=== PATIENT | female | born 1940 | race Caucasian/White ===

== ENCOUNTER 2016-12-22 16:00 | Inpatient (IN) | payer MEDICARE, OTHER ==
[2016-12-29] MEDS: Lactated Ringers 1,000 ML IV SCH ×2 (06:25→10:06)
[2016-12-29] MEDS ORDERED: ceFAZolin 1 GM Vial ONE (06:46)
[2016-12-29] MEDS ORDERED: Ondansetron 4 MG/2 ML SDV ONE (06:46)
[2016-12-29] MEDS ORDERED: Sodium Chloride 0.9% 10 ML Syringe ONE (06:46)
[2016-12-29] MEDS ORDERED: Morphine PF 10 MG/10 ML SDV ONE (06:46)
[2016-12-29] MEDS ORDERED: Propofol 200 MG/20 ML SDV ONE ×2 (06:49→07:59)
--- NOTE | 2016-12-29 06:51 | PCM.PREANE ---
Preanesthetic Assessment - Anesthesia/Transfusion/Family Hx Anesthesia History: Prior Anesthesia Without Reaction Family History of Anesthesia Reaction: No Transfusion History: Prior Transfusion Without Reaction - Review of Systems General: No Symptoms Pulmonary: No Symptoms Cardiovascular: No Symptoms Gastrointestinal: No Symptoms Neurological: No Symptoms Other: Reports: Easy Bruising - Physical Assessment NPO Status Date: 12/28/16 NPO Status Time: 20:15 O2 Sat by Pulse Oximetry: 96 Respiratory Rate: 16 Vital Signs: Last Vital Signs Temp 97.7 F 12/29/16 06:10 Pulse 96 12/29/16 06:10 Resp 16 12/29/16 06:10 BP 153/84 H 12/29/16 06:10 Pulse Ox 96 12/29/16 06:10 Height: 5 ft 3 in Weight: 59.421 kg ASA Class: 3 Mental Status: Alert & Oriented x3 Dentition: Reports: Dentures (top ), Partial (bottom) Thyro-Mental Finger Breadths: 2 Mouth Opening Finger Breadths: 3 ROM/Head Extension: Full Lungs: Clear to Auscultation, Normal Respiratory Effort Cardiovascular: Regular Rate, Regular Rhythm, No Murmurs - Lab Values: Laboratory Last Values MRSA (PCR) Negative 12/17/16 12:41 12/15/16 labs HGB 13.8 Plt 145 BUN 17 Cr 0.60 Na 134 K 3.9 Cl 96 COs 28 - Imaging/EKG Impressions: 12-15-16 EKG SR rate 74 inferior infarct-old - Allergies Allergies/Adverse Reactions: Allergies Allergy/AdvReac Type Severity Reaction Status Date / Time JANELL Inhibitors Allergy Cannot Verified 12/29/16 06:44 Remember amoxicillin Allergy Cannot Verified 12/29/16 06:44 Remember Sulfa (Sulfonamide Allergy Cannot Verified 12/29/16 06:44 Antibiotics) Remember - Blood Blood Available: No - Acknowledgements Anesthesia Type Planned: Spinal Pt an Appropriate Candidate for the Planned Anesthesia: Yes Alternatives and Risks of Anesthesia Discussed w Pt/Guardian: Yes Pt/Guardian Understands and Agrees with Anesthesia Plan: Yes PreAnesthesia Questionnaire HEENT History: Reports: Impaired Vision, Macular Degeneration, Other (See Below) Other HEENT History: Broken tooth Cardiovascular History: Reports: Hypertension, Other (See Below) Other Cardiovascular History: Dependent edema Respiratory History: Reports: None Gastrointestinal History: Reports: Colon Polyp Genitourinary History: Reports: UTI, Recurrent [employer]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: Musculoskeletal History: Reports: Osteoarthritis Other Musculoskeletal History: Hand pain, ankle sprain, bilateral carpal tunnel Neurological History: Reports: Other (See Below) Other Neuro History: Mild kyphosis Psychiatric History: Reports: None Endocrine/Metabolic History: Reports: Osteopenia, Other (See Below) Other Endocrine/Metabolic History: Lupus Hematologic History: Reports: Other (See Below) Other Hematologic History: Thrombocytopenia, pancytopenia Immunologic History: Reports: Other (See Below) Other Immunologic History: Lupus Oncologic (Cancer) History: Reports: None Dermatologic History: Reports: Other (See Below) Other Dermatologic History: Dry skin - Infectious Disease History Infectious Disease History: Reports: Shingles - Past Surgical History HEENT Surgical History: Reports: None Cardiovascular Surgical History: Reports: None Respiratory Surgical History: Reports: None GI Surgical History: Reports: Colonoscopy Female Surgical History: Reports: Dilitation & Evacuation Endocrine Surgical History: Reports: None Neurological Surgical History: Reports: None Musculoskeletal Surgical History: Reports: Knee Replacement Other Musculoskeletal Surgeries/Procedures:: Bilateral carpaul tunnel repair, Right total knee replacement Oncologic Surgical History: Reports: None Dermatological Surgical History: Reports: None - SUBSTANCE USE Smoking Status *Q: Never Smoker Tobacco Use Within Last Twelve Months: No Second Hand Smoke Exposure: No Days Per Week of Alcohol Use: 0 Recreational Drug Use History: No - HOME MEDS Home Medications: Home Meds Gabapentin [Neurontin] 300 mg PO TID 03/27/16 [History] Hydroxychloroquine [Plaquenil] 200 mg PO BID 03/27/16 [History] Losartan/Hydrochlorothiazide [Losartan-HCTZ 50-12.5 MG] 1 tab PO DAILY 03/27/16 [History] azaTHIOprine [Azathioprine] 50 mg PO BID 03/27/16 [History] Aspirin [Halfprin] 81 mg PO DAILY 12/26/16 [History] Betamethasone Valerate 1 applic TP ASDIRECTED PRN 12/26/16 [History] Biotin 5,000 mcg PO DAILY 12/26/16 [History] Cranberry 400 mg PO BID 12/26/16 [History] Diltiazem HCl [Diltiazem ER] 300 mg PO DAILY 12/26/16 [History] FA/Lycopene/Lut/MV,Ca,Iron,Min [Centrum] 1 tab PO DAILY 12/26/16 [History] Lysine 500 mg PO DAILY 12/26/16 [History] Zolpidem Tartrate [Ambien] 5 mg PO BEDTIME PRN 12/26/16 [History] predniSONE [Prednisone] 5 mg PO DAILY 12/26/16 [History] - CURRENT (IN HOUSE) MEDS Current Meds: Current Medications Lactated Ringer's (Ringers, Lactated) 1,000 mls @ 125 mls/hr IV ASDIRECTED ISAI Last Admin: 12/29/16 06:25 Dose: 125 mls/hr Lidocaine/Sodium Bicarbonate (Buffered Lidocaine 1% In Ns 8.4%) 0.25 ml IV ONETIME PRN PRN Reason: Prior to IV Start Last Admin: 12/29/16 06:25 Dose: 0.25 ml Sodium Chloride (Saline Flush) 10 ml FLUSH ASDIRECTED PRN PRN Reason: Keep Vein Open Discontinued Medications Bupivacaine HCl (Marcaine 0.25%) Confirm Administered Dose 30 ml .ROUTE .STK- MED ONE Stop: 12/29/16 06:23 Cefazolin Sodium (Ancef) Confirm Administered Dose 2 gm .ROUTE .STK-MED ONE Stop: 12/29/16 06:20 Cefazolin Sodium (Ancef) Confirm Administered Dose 2 gm .ROUTE .STK-MED ONE Stop: 12/29/16 06:47 Iodine (Iodine 2% Mild Tincture) Confirm Administered Dose 30 ml .ROUTE .STK- MED ONE Stop: 12/29/16 06:20 Morphine Sulfate (Duramorph Pf) Confirm Administered Dose 10 mg .ROUTE .STK-MED ONE Stop: 12/29/16 06:47 Ondansetron HCl (Zofran) Confirm Administered Dose 4 mg .ROUTE .STK-MED ONE Stop: 12/29/16 06:47 Propofol (Diprivan 20 Ml) Confirm Administered Dose 200 mg .ROUTE .STK-MED ONE Stop: 12/29/16 06:50 Sodium Chloride (Saline Flush) Confirm Administered Dose 10 ml .ROUTE .STK-MED ONE Stop: 12/29/16 06:47 Tranexamic Acid (Cyklokapron) Confirm Administered Dose 1,000 mg .ROUTE .STK- MED ONE Stop: 12/29/16 06:20
[2016-12-29] MEDS ORDERED: Lidocaine 1%/Sod Bicarbonate in NS 8.4% 1 ML Syringe IV PRN (07:00)
[2016-12-29] MEDS ORDERED: Sodium Chloride 0.9% 10 ML Syringe FLUSH PRN (07:00)
[2016-12-29] MEDS ORDERED: Hydrocortisone Sodium Succinate 100 MG/2 ML SDV ONE (07:29)
[2016-12-29] MEDS ORDERED: Lactated Ringers 1,000 ML ONE (07:30)
[2016-12-29] MEDS: ceFAZolin 1 GM Vial ONE ×2 (07:54→08:15)
[2016-12-29] MEDS: Iodine/Sodium Iodide 2% Tincture 30 ML Bottle ONE ×2 (07:54→08:11)
[2016-12-29] MEDS: Bupivacaine 0.25% 30 ML SDV ONE ×2 (07:55→08:20)
[2016-12-29] MEDS: Morphine 8 MG, EPINEPHrine 0.3 MG, Cefuroxime 750 MG, Ketorolac 30 MG, Sodium Chloride ... ONE ×15 (07:55→13:09)
[2016-12-29] MEDS ORDERED: Ondansetron 4 MG/2 ML SDV IVPUSH PRN ×2 (08:00→09:00)
[2016-12-29] MEDS ORDERED: diphenhydrAMINE 50 MG/ML SDV IVPUSH PRN ×4 (08:00→16:51)
[2016-12-29] MEDS ORDERED: Phenylephrine 1% 10 MG/ML SDV ONE (08:38)
[2016-12-29] MEDS ORDERED: Sennosides 8.6 MG Tab PO PRN (09:00)
[2016-12-29] MEDS ORDERED: Naloxone 0.4 MG/ML SDV IVPUSH PRN (09:00)
[2016-12-29] MEDS ORDERED: Bisacodyl 5 MG Tab PO PRN (09:00)
[2016-12-29] MEDS ORDERED: Magnesium Hydroxide 400 MG/5 ML Susp 30 ML Cup PO PRN (09:00)
[2016-12-29] MEDS ORDERED: Morphine 2 MG/ML Syringe IVPUSH PRN (09:00)
--- NOTE | 2016-12-29 09:10 | PCM.POSTAN ---
POST ANESTHESIA ASSESSMENT - MENTAL STATUS Mental Status: Alert, Oriented - VITAL SIGNS Pulse Rate: 93 SaO2: 99 Resp Rate: 9 Blood Pressure: 116/63 Temperature: 98.8 F - RESPIRATORY Respiratory Status: Respiratory Rate WNL, Airway Patent, O2 Saturation Stable - CARDIOVASCULAR CV Status: Pulse Rate WNL, Blood Pressure Stable - GASTROINTESTINAL GI Status: No Symptoms - PAIN Pain Score: 0 - POST OP HYDRATION Hydration Status: Adequate & Stable
[2016-12-29] MEDS ORDERED: BETAMETHASONE VALERATE 0.1% TOP PRN (09:13)
--- NOTE | 2016-12-29 10:23 | CR ---
Left knee: AP and lateral views of the left knee were obtained. Comparison: No previous knee exam. Knee prosthesis is seen. Components are well aligned. Soft tissue air is noted from the surgical procedure. Underlying bony structures are intact. Impression: 1. Satisfactory radiographic appearance of a recently placed left knee prosthesis. Diagnostic code #2
--- NOTE | 2016-12-29 10:45 | PCM.OPNOTE ---
- General Post-Op/Procedure Note Date of Surgery/Procedure: 12/29/16 Operative Procedure(s): left total knee arthroplasty Pre Op Diagnosis: left knee osteoarthrosis Post-Op Diagnosis: Same Anesthesia Technique: Local, MAC, Spinal Primary Surgeon: Valentin Stahl Anesthesia Provider: Ashwin Barry Mushroom Farmer: Cassi Plasencia Mushroom Farmer: Katie Beasley EBL in mLs: 300 Complications: None Condition: Good Free Text/Narrative:: Intake & Output 12/28/16 12/29/16 12/29/16 22:59 06:59 14:59 Intake Total 400 Output Total 200 Balance 200
--- NOTE | 2016-12-29 12:32 | PCM.CONS ---
H&P History of Present Illness - General Date of Service: 12/29/16 Admit Problem/Dx: Admission Diagnosis/Problem Admission Diagnosis/Problem Osteoarthritis of knee Source of Information: Patient, Family, Old Records, Provider, RN Notes Reviewed History Limitations: Reports: Physical Impairment - History of Present Illness Initial Comments - Free Text/Narative: This is a 76-year-old, white male, with past medical history of HTN, Hx/o Left Hip Fracture Status Post Surgical Pinning, Chronic ETOH Use, Chronic Tobacco Product Use (He chews) and Osteopenia who underwent left hip hardware removal and left total knee arthroplasty post operative day zero. Patient is doing relatively well. Currently, his pain is controlled. He denies any acute issues. Medicine was consulted for postoperative care. - Related Data Allergies/Adverse Reactions: Allergies Allergy/AdvReac Type Severity Reaction Status Date / Time JANELL Inhibitors Allergy Cannot Verified 12/29/16 06:44 Remember amoxicillin Allergy Cannot Verified 12/29/16 06:44 Remember Sulfa (Sulfonamide Allergy Cannot Verified 12/29/16 06:44 Antibiotics) Remember Home Medications: Home Meds Gabapentin [Neurontin] 300 mg PO TID 03/27/16 [History] Hydroxychloroquine [Plaquenil] 200 mg PO BID 03/27/16 [History] Losartan/Hydrochlorothiazide [Losartan-HCTZ 50-12.5 MG] 1 tab PO BID 03/27/16 [ History] azaTHIOprine [Azathioprine] 50 mg PO BID 03/27/16 [History] Aspirin [Halfprin] 81 mg PO DAILY 12/26/16 [History] Betamethasone Valerate 1 applic TP ASDIRECTED PRN 12/26/16 [History] Biotin 5,000 mcg PO DAILY 12/26/16 [History] Cranberry 400 mg PO BID 12/26/16 [History] Diltiazem HCl [Diltiazem ER] 300 mg PO DAILY 12/26/16 [History] FA/Lycopene/Lut/MV,Ca,Iron,Min [Centrum] 1 tab PO DAILY 12/26/16 [History] Lysine 500 mg PO DAILY 12/26/16 [History] Zolpidem Tartrate [Ambien] 5 mg PO BEDTIME PRN 12/26/16 [History] predniSONE [Prednisone] 5 mg PO DAILY 12/26/16 [History] Past Medical History HEENT History: Reports: Impaired Vision, Macular Degeneration, Other (See Below) Other HEENT History: Broken tooth Cardiovascular History: Reports: Hypertension, Other (See Below) Other Cardiovascular History: Dependent edema Respiratory History: Reports: None Gastrointestinal History: Reports: Colon Polyp Genitourinary History: Reports: UTI, Recurrent 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: Musculoskeletal History: Reports: Osteoarthritis Other Musculoskeletal History: Hand pain, ankle sprain, bilateral carpal tunnel Neurological History: Reports: Other (See Below) Other Neuro History: Mild kyphosis Psychiatric History: Reports: None Endocrine/Metabolic History: Reports: Osteopenia, Other (See Below) Other Endocrine/Metabolic History: Lupus Hematologic History: Reports: Other (See Below) Other Hematologic History: Thrombocytopenia, pancytopenia Immunologic History: Reports: SLE, Other (See Below) Other Immunologic History: Lupus Oncologic (Cancer) History: Reports: None Dermatologic History: Reports: Other (See Below) Other Dermatologic History: Dry skin - Infectious Disease History Infectious Disease History: Reports: Shingles - Past Surgical History HEENT Surgical History: Reports: Cataract Surgery Cardiovascular Surgical History: Reports: None Respiratory Surgical History: Reports: None GI Surgical History: Reports: Colonoscopy Female Surgical History: Reports: Dilitation & Evacuation Endocrine Surgical History: Reports: None Neurological Surgical History: Reports: None Musculoskeletal Surgical History: Reports: Knee Replacement Other Musculoskeletal Surgeries/Procedures:: Bilateral carpaul tunnel repair, Right total knee replacement Oncologic Surgical History: Reports: None Dermatological Surgical History: Reports: Skin Biopsy Social & Family History - Family History Family Medical History: Noncontributory - Tobacco Use Smoking Status *Q: Never Smoker Second Hand Smoke Exposure: No - Caffeine Use Caffeine Use: Reports: Coffee Caffeine Use Comment: for breakfast - Alcohol Use Days Per Week of Alcohol Use: 0 - Recreational Drug Use Recreational Drug Use: No Drug Use in Last 12 Months: No H&P Review of Systems - Review of Systems: Review Of Systems: See Below General: Denies: Fever, Chills, Malaise, Weakness, Fatigue HEENT: Reports: No Symptoms Pulmonary: Denies: Shortness of Breath Cardiovascular: Denies: Chest Pain, Palpitations, Dyspnea on Exertion, Edema, Lightheadedness Gastrointestinal: Denies: Abdominal Pain, Decreased Appetite, Nausea, Vomiting Genitourinary: Reports: No Symptoms Musculoskeletal: Reports: No Symptoms Skin: Denies: Cyanosis, Rash, Erythema Psychiatric: Denies: Depression, Anxiety, Agitation, Hallucinations, Suicidal Ideation Neurological: Reports: Pre-Existing Deficit, Difficulty Walking, Gait Disturbance. Denies: Confusion, Weakness Hematologic/Lymphatic: Reports: No Symptoms Immunologic: Reports: No Symptoms Exam - Exam Exam: See Below - Vital Signs Vital Signs: Last Vital Signs Temp 36.5 C 12/29/16 11:40 Pulse 86 12/29/16 11:40 Resp 14 12/29/16 11:40 BP 128/69 12/29/16 11:40 Pulse Ox 96 12/29/16 11:59 Weight: 59.421 kg - Exam General: Alert, Oriented, Cooperative, Mild Distress HEENT: Conjunctiva Clear, EACs Clear, EOMI, Hearing Intact, Mucosa Moist & [place] , Nares Patent, Normal Nasal Septum, Posterior Pharynx Clear, Pupils Equal, Pupils Reactive, TMs Clear, Other (Poor Dentition) Neck: Supple, Trachea Midline, +2 Carotid Pulse wo Bruit Lungs: Clear to Auscultation, Normal Respiratory Effort Cardiovascular: Regular Rate, Regular Rhythm GI/Abdominal Exam: Normal Bowel Sounds, Soft, Non-Tender, No Organomegaly, No Distention, No Abnormal Bruit, No Mass (Female) Exam: Other (Indwelling chavez catheter) Rectal (Female) Exam: Deferred Back Exam: Normal Inspection, Decreased Range of Motion Extremities: Normal Inspection, Non-Tender, No Pedal Edema, Normal Capillary Refill, Other (limited due to abduction wedge) Peripheral Pulses: 2+: Posterior Tibial (L), Posterior Tibial (R), Dorsalis Pedis (L), Dorsalis Pedis (R) Skin: Warm, Dry, Intact Neuro Extensive - Mental Status: Oriented x3, Normal Cognition, Memory Intact Neuro Extensive - Motor, Sensory, Reflexes: CN II-XII Intact (limited but fairly intact), Abnormal Gait Psychiatric: Alert, Normal Affect, Normal Mood. No: Anxious, Agitated, Withdrawal Symptoms Consult PN Assessment/Plan POD#: 0 Procedures: Procedures BONE IMAGING 3 PHASE (10/06/16) DRAIN/INJ JOINT/BURSA W/O US (05/13/16) DXA BONE DENSITY AXIAL (11/05/16) EMERGENCY DEPT VISIT (03/27/16) EMERGENCY DEPT VISIT (11/08/14) X-RAY EXAM OF ANKLE (11/08/14) X-RAY EXAM OF LOWER LEG (11/08/14) X-RAY EXAM OF WRIST (03/27/16) Problem List Initiated/Reviewed/Updated: Yes Plan: Assessment: Acute: Post-Operative Care State - Stable - Continue to monitor for hemodynamic instability S/p Removal of Hardware and Left Total Knee Arthroplasty - Stable - DVT and Pain Management as per primary team Hx/o Chronic Pain From Left Hip Hardware S/p Removal and TKA - Pain Management as per primary team Chronic: HTN Chronic ETOH Use, drinks 4-5 beers a day Tobacco Product Use, he chews Osteopenia Plan: He is clinically stable Routine AM labs Monitor for Withdrawal, no need for prophylaxis at this time Nicotine Patch 21 mg daily Continue home meds PT/OT consult IS q2 awake Thank you for the opportunity to participate in the management of this patient. Requesting Provider: Dr. Stahl Date Consult Requested: 12/29/16 Reason for Consult: Post-Operative Care Patient History Reviewed: Yes Admission H&P Reviewed: Yes Consult Result/Summary: Stable
--- NOTE | 2016-12-29 12:37 | OR ---
DATE OF OPERATION: 12/29/2016 SURGEON: Valentin Stahl MD OPERATION PERFORMED: Left total knee arthroplasty. PREOPERATIVE DIAGNOSIS: Left total knee osteoarthrosis. POSTOPERATIVE DIAGNOSIS: Left total knee osteoarthrosis. ANESTHESIA: Local MAC with spinal. ANESTHESIA PROVIDER: Ashwin Barry CRNA. ELECTROENCEPHALOGRAPH TECHNOLOGIST: Cassi Plasencia PA-C and Katie Beasley LPN. ESTIMATED BLOOD LOSS: 300 mL. COMPLICATIONS: None. CONDITION: Stable. IMPLANTS: 1. [place] size 3 PS femur. 2. Jelly size 3 universal tibial baseplate. 3. [place] size 3, 11 PS X3 polyethylene. 4. [place] 29 x 9 mm asymmetric patella. DESCRIPTION OF PROCEDURE: The patient was identified in the preop holding area. Proper site was marked and identified by the surgeon. The patient was taken back to the operating theater. After adequate anesthesia, the patient's left lower extremity had a nonsterile tourniquet applied and it was then sterilely prepped and draped in the usual sterile fashion. OR timeout was performed. The patient received 2 g IV Ancef. At this time, the left lower extremity was exsanguinated. Tourniquet was insufflated to 300 mmHg. Standard medial parapatellar incision was made. Medial parapatellar arthrotomy was created. Deep fibers of the MCL were raised and anterior fat pad was resected. At this time, attention was turned to the patella. Patella measured 22, it was resected to a 13 for a 29 x 9 mm patella. Drill holes were then drilled and found to be in adequate position. The drill was then drilled in the distal femur and the intramedullary distal femoral cutting guide was then placed. 8 mm was resected off the distal femur and was found to be an adequate resection. Sizing guide was placed. It was found to be a size 3 PS femur that was shown on the implant record at the beginning of this dictation. The drill holes were drilled for the epicondylar axis using [place]ites[place] line and epicondyles as reference. At this time, the 4-in-1 cutting block was placed. An anterior posterior and anterior and posterior chamfer cuts were then completed. The correct size box cut was then placed and the box cut was completed and found to be an adequate resection. Attention was turned to the tibia. The posterior medial lateral retractors were placed. The extramedullary tibial guide was placed. It was placed in the old footprint of the ACL. It was aligned with the center of the ankle and 0 degrees of slope, 9 mm was then resected off the unaffected lateral side. There was found to be an acceptable reduction. At this time, posterior osteophytes were removed along with medial and lateral meniscus. A trial implant was placed with a correct sized tibia that was mentioned at the beginning of the dictation. An 11 mm trial spacer was placed and an 11 mm X3 PS polyethylene was then placed. The patient's knee was brought through range of motion. The patella was tracking centrally and was stable to varus and valgus stress. Alignment was found to be roughly at 0 degrees. At this time, cement was mixed on the back table. The tibia was stamped and drilled in proper rotation. All cut surfaces were irrigated with pulse lavage irrigation with Ancef and then completely dried. Once this was completed, then the cement was ready. The universal tibial base plate was cemented in place. Next, the 3 PS femur cemented into place and the 11 mm X3 PS polyethylene was placed. The patient's knee was brought into full extension. Excess cement was removed. The patella was then cemented in place at this time. Tourniquet was deflated. One liter dilute Betadine solution was irrigated through the knee along with 3 L of pulse lavage irrigation with Ancef. Periarticular injection was then completed. The patient's knee was brought through a range of motion. Once the cement had time to set up and it was found to be stable to varus valgus stress, the patella was tracking centrally with full range of motion. At this time, a #2 barbed suture was used for closure of the medial parapatellar arthrotomy. Topical tranexamic acid was placed. 2-0 Vicryl was used subcutaneously, a running 3-0 Monocryl was used subcuticularly. The patient tolerated the procedure well and was sent to the PACU in stable condition. LORNA /[id number]
[2016-12-29] MEDS: ceFAZolin 2 GM in Premix Bag 1 BAG IV SCH ×2 (15:23→22:12)
[2016-12-29] MEDS: Docusate Sodium 100 MG Cap PO SCH ×2 (15:24→20:25)
[2016-12-29] MEDS: Gabapentin 300 MG Cap PO SCH ×2 (15:24→20:25)
[2016-12-29] MEDS: Famotidine 20 MG Tab PO SCH ×2 (15:24→20:25)
[2016-12-29] MEDS ORDERED: Nicotine 21 MG/24 Hr Patch TRDERM ONE (16:03)
[2016-12-29] MEDS ORDERED: LORazepam 2 MG/ML MDV IVPUSH PRN ×2 (16:04)
[2016-12-29] MEDS ORDERED: hydrALAZINE 20 MG/ML SDV IVPUSH PRN ×2 (16:04→16:49)
[2016-12-29] MEDS ORDERED: Metoprolol Tartrate 5 MG/5 ML SDV IVPUSH PRN (16:04)
--- NOTE | 2016-12-29 16:17 | PCM.CONS ---
H&P History of Present Illness - General Date of Service: 12/29/16 Admit Problem/Dx: Admission Diagnosis/Problem Admission Diagnosis/Problem Osteoarthritis of knee Source of Information: Patient, Old Records, Provider, RN Notes Reviewed History Limitations: Reports: Physical Impairment - History of Present Illness Initial Comments - Free Text/Narative: This is a 76-year-old, white female, with past medical history of HTN, Lupus Arthritis, SLE, Thrombocytopenia, Osteopenia, Macular Degeneration, and Sprain of Tibio-fibular Ligament of the Ankle who underwent left hip arthroplasty post operative day zero. Patient is doing relatively well. Currently, her pain is controlled. She denies any acute issues. Medicine was consulted for postoperative care. - Related Data Allergies/Adverse Reactions: Allergies Allergy/AdvReac Type Severity Reaction Status Date / Time JANELL Inhibitors Allergy Cannot Verified 12/29/16 06:44 Remember amoxicillin Allergy Cannot Verified 12/29/16 06:44 Remember Sulfa (Sulfonamide Allergy Cannot Verified 12/29/16 06:44 Antibiotics) Remember Home Medications: Home Meds Gabapentin [Neurontin] 300 mg PO TID 03/27/16 [History] Hydroxychloroquine [Plaquenil] 200 mg PO BID 03/27/16 [History] Losartan/Hydrochlorothiazide [Losartan-HCTZ 50-12.5 MG] 1 tab PO BID 03/27/16 [ History] azaTHIOprine [Azathioprine] 50 mg PO BID 03/27/16 [History] Aspirin [Halfprin] 81 mg PO DAILY 12/26/16 [History] Betamethasone Valerate 1 applic TP ASDIRECTED PRN 12/26/16 [History] Biotin 5,000 mcg PO DAILY 12/26/16 [History] Cranberry 400 mg PO BID 12/26/16 [History] Diltiazem HCl [Diltiazem ER] 300 mg PO DAILY 12/26/16 [History] FA/Lycopene/Lut/MV,Ca,Iron,Min [Centrum] 1 tab PO DAILY 12/26/16 [History] Lysine 500 mg PO DAILY 12/26/16 [History] Zolpidem Tartrate [Ambien] 5 mg PO BEDTIME PRN 12/26/16 [History] predniSONE [Prednisone] 5 mg PO DAILY 12/26/16 [History] Past Medical History HEENT History: Reports: Impaired Vision, Macular Degeneration, Other (See Below) Other HEENT History: Broken tooth Cardiovascular History: Reports: Hypertension, Other (See Below) Other Cardiovascular History: Dependent edema Respiratory History: Reports: None Gastrointestinal History: Reports: Colon Polyp Genitourinary History: Reports: UTI, Recurrent 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: Musculoskeletal History: Reports: Osteoarthritis Other Musculoskeletal History: Hand pain, ankle sprain, bilateral carpal tunnel Neurological History: Reports: Other (See Below) Other Neuro History: Mild kyphosis Psychiatric History: Reports: None Endocrine/Metabolic History: Reports: Osteopenia, Other (See Below) Other Endocrine/Metabolic History: Lupus Hematologic History: Reports: Other (See Below) Other Hematologic History: Thrombocytopenia, pancytopenia Immunologic History: Reports: SLE, Other (See Below) Other Immunologic History: Lupus Oncologic (Cancer) History: Reports: None Dermatologic History: Reports: Other (See Below) Other Dermatologic History: Dry skin - Infectious Disease History Infectious Disease History: Reports: Shingles - Past Surgical History HEENT Surgical History: Reports: Cataract Surgery Cardiovascular Surgical History: Reports: None Respiratory Surgical History: Reports: None GI Surgical History: Reports: Colonoscopy Female Surgical History: Reports: Dilitation & Evacuation Endocrine Surgical History: Reports: None Neurological Surgical History: Reports: None Musculoskeletal Surgical History: Reports: Knee Replacement Other Musculoskeletal Surgeries/Procedures:: Bilateral carpaul tunnel repair, Right total knee replacement Oncologic Surgical History: Reports: None Dermatological Surgical History: Reports: Skin Biopsy Social & Family History - Family History Family Medical History: Noncontributory - Tobacco Use Smoking Status *Q: Never Smoker Second Hand Smoke Exposure: No - Caffeine Use Caffeine Use: Reports: Coffee Caffeine Use Comment: for breakfast - Alcohol Use Days Per Week of Alcohol Use: 0 - Recreational Drug Use Recreational Drug Use: No Drug Use in Last 12 Months: No H&P Review of Systems - Review of Systems: Review Of Systems: See Below General: Denies: Fever, Chills, Malaise, Weakness HEENT: Reports: No Symptoms Pulmonary: Denies: Shortness of Breath Cardiovascular: Denies: Chest Pain, Palpitations, Dyspnea on Exertion, Lightheadedness Gastrointestinal: Reports: Flatus. Denies: Abdominal Pain, Decreased Appetite, Difficulty Swallowing, Nausea, Vomiting Genitourinary: Reports: No Symptoms, Other Musculoskeletal: Denies: Neck Pain Skin: Denies: Jaundice, Erythema, Wound Psychiatric: Denies: Confusion, Depression, Anxiety, Hallucinations, Suicidal Ideation Neurological: Reports: Pre-Existing Deficit, Difficulty Walking, Gait Disturbance. Denies: Confusion, Weakness Hematologic/Lymphatic: Reports: No Symptoms Immunologic: Reports: No Symptoms Exam - Exam Exam: See Below - Vital Signs Vital Signs: Last Vital Signs Temp 37.0 C 12/29/16 12:52 Pulse 96 12/29/16 12:52 Resp 16 12/29/16 12:52 BP 126/62 12/29/16 12:52 Pulse Ox 96 12/29/16 12:52 Weight: 59.421 kg - Exam General: Alert, Oriented, Cooperative. No: Mild Distress HEENT: Conjunctiva Clear, EACs Clear, EOMI, Hearing Intact, Mucosa Moist & [place] , Nares Patent, Normal Nasal Septum, Posterior Pharynx Clear, Pupils Equal, Pupils Reactive Neck: Supple, Trachea Midline, +2 Carotid Pulse wo Bruit Lungs: Clear to Auscultation, Normal Respiratory Effort Cardiovascular: Regular Rate, Regular Rhythm GI/Abdominal Exam: Normal Bowel Sounds, Soft, Non-Tender, No Organomegaly, No Distention, No Abnormal Bruit, No Mass (Female) Exam: Other (indwelling chavez catheter) Rectal (Female) Exam: Deferred Back Exam: Normal Inspection, Decreased Range of Motion Extremities: Normal Inspection, Normal Range of Motion, Non-Tender, No Pedal Edema, Normal Capillary Refill Peripheral Pulses: 2+: Posterior Tibial (L), Posterior Tibial (R), Dorsalis Pedis (L), Dorsalis Pedis (R) Neuro Extensive - Mental Status: Oriented x3, Normal Cognition, Memory Intact Neuro Extensive - Motor, Sensory, Reflexes: CN II-XII Intact (Limited but fairly intact), Abnormal Gait Psychiatric: Alert, Normal Affect, Normal Mood Consult PN Assessment/Plan POD#: 0 Procedures: Procedures BONE IMAGING 3 PHASE (10/06/16) DRAIN/INJ JOINT/BURSA W/O US (05/13/16) DXA BONE DENSITY AXIAL (11/05/16) EMERGENCY DEPT VISIT (03/27/16) EMERGENCY DEPT VISIT (11/08/14) X-RAY EXAM OF ANKLE (11/08/14) X-RAY EXAM OF LOWER LEG (11/08/14) X-RAY EXAM OF WRIST (03/27/16) Problem List Initiated/Reviewed/Updated: Yes My Orders Last 24 Hours: My Active Orders 12/29/16 16:04 LORazepam [Ativan] 2 mg IVPUSH Q4H PRN LORazepam [Ativan] See Protocol IVPUSH Q4H PRN Metoprolol Tartrate [Lopressor] 5 mg IVPUSH Q4H PRN hydrALAZINE [Apresoline] 20 mg IVPUSH Q4H PRN 12/30/16 09:00 Nicotine [Habitrol] 21 mg TRDERM DAILY Plan: Assessment: Acute: Post-Operative Care State - Stable - Continue to monitor for hemodynamic instability S/p Left Total Knee Arthroplasty - Stable - DVT and Pain Management as per primary team Hx/o Chronic Pain Left Knee S/p TKA - Pain Management as per primary team Chronic: HTN Lupus Arthritis SLE Thrombocytopenia Osteopenia Macular Degeneration Sprain of Tibio-fibular Ligament of the Ankle Plan: She is clinically stable Routine AM labs Continue home meds PT/OT consult IS q2 awake Thank you for the opportunity to participate in the management of this patient. Requesting Provider: Dr. Stahl Date Consult Requested: 12/29/16 Reason for Consult: Post-Operative Care Patient History Reviewed: Yes Admission H&P Reviewed: Yes Consult Result/Summary: Stable
[2016-12-29] MEDS: Acetaminophen/oxyCODONE 325-5 MG Tab PO PRN (20:25)
[2016-12-29] MEDS: Hydroxychloroquine 200 MG Tab PO SCH (20:25)
[2016-12-30] MEDS: Acetaminophen/oxyCODONE 325-5 MG Tab PO PRN ×3 (04:31→13:19)
[2016-12-30] MEDS: ceFAZolin 2 GM in Premix Bag 1 BAG IV SCH (06:41)
[2016-12-30] MEDS ORDERED: Multivitamins,Therapeutic Tab PO SCH (07:00)
[2016-12-30] MEDS: Docusate Sodium 100 MG Cap PO SCH (08:39)
[2016-12-30] MEDS: Famotidine 20 MG Tab PO SCH (08:39)
[2016-12-30] MEDS: Hydroxychloroquine 200 MG Tab PO SCH (08:39)
[2016-12-30] MEDS: Gabapentin 300 MG Cap PO SCH (08:39)
[2016-12-30] MEDS ORDERED: Remove Patch **NICOTINE TRDERM SCH (09:00)
[2016-12-30] MEDS ORDERED: Aspirin 325 MG Tab.EC PO SCH (09:00)
[2016-12-30] MEDS ORDERED: predniSONE 5 MG Tab PO SCH (09:00)
[2016-12-30] MEDS ORDERED: Losartan 25 MG Tab PO SCH (09:00)
[2016-12-30] MEDS ORDERED: Diltiazem 300 MG Cap.CD PO SCH (09:00)
[2016-12-30] MEDS ORDERED: Hydrochlorothiazide 12.5 MG Cap PO SCH (09:00)
[2016-12-30] MEDS ORDERED: Nicotine 21 MG/24 Hr Patch TRDERM SCH (09:00)
[2016-12-30] MEDS ORDERED: LYSINE 500 MG PO SCH (09:00)
--- NOTE | 2016-12-30 09:37 | PCM.CONSN ---
- General Info Date of Service: 12/30/16 Admission Dx/Problem (Free Text): Admission Diagnosis/Problem Admission Diagnosis/Problem Osteoarthritis of knee POD #[address] Stahl Pain controlled, tolerating diet with nausea. Working with therapies, doing well. Plans dc home with family today. Functional Status: Reports: Pain Controlled, Tolerating Diet, Ambulating, Urinating. Denies: New Symptoms - Review of Systems General: Reports: No Symptoms HEENT: Reports: No Symptoms Pulmonary: Reports: No Symptoms Cardiovascular: Reports: No Symptoms Gastrointestinal: Reports: No Symptoms Genitourinary: Reports: No Symptoms Musculoskeletal: Reports: Leg Pain Skin: Reports: No Symptoms Neurological: Reports: No Symptoms Psychiatric: Reports: No Symptoms - Patient Data Vitals - Most Recent: Last Vital Signs Temp 98.1 F 12/30/16 08:07 Pulse 101 H 12/30/16 08:07 Resp 12 12/30/16 08:07 BP 145/65 H 12/30/16 08:38 Pulse Ox 97 12/30/16 08:07 Weight - Most Recent: 139 lb 3.2 oz I&O - Last 24 Hours: Intake & Output 12/29/16 12/30/16 12/30/16 22:59 06:59 14:59 Intake Total 1210 450 Output Total 525 Balance 685 450 Lab Results Last 24 Hours: Laboratory Results - last 24 hr 12/30/16 12/30/16 Range/Units 05:50 05:50 WBC 5.36 (3.98-10.04) K/mm3 RBC 3.53 L (3.98-5.22) M/mm3 Hgb 10.9 L (11.2-15.7) gm/L Hct 33.6 L (34.1-44.9) % MCV 95.2 H (79.4-94.8) fl MCH 30.9 (25.6-32.2) pg MCHC 32.4 (32.2-35.5) g/dl RDW Std Deviation 53.2 H (36.4-46.3) fL Plt Count 136 L (182-369) K/mm3 MPV 10.9 (9.4-12.3) fl Neut % (Auto) 73.8 H (34.0-71.1) % Lymph % (Auto) 13.6 L (19.3-51.7) % [place] % (Auto) 11.4 (4.7-12.5) % Eos % (Auto) 0.4 L (0.7-5.8) Baso % (Auto) 0.2 (0.1-1.2) % Neut # (Auto) 3.96 (1.56-6.13) K/mm3 Lymph # (Auto) 0.73 L (1.18-3.74) K/mm3 [place] # (Auto) 0.61 H (0.24-0.36) K/mm3 Eos # (Auto) 0.02 L (0.04-0.36) K/mm3 Baso # (Auto) 0.01 (0.01-0.08) K/mm3 Sodium 136 (136-145) mEq/L Potassium 3.9 (3.5-5.1) mEq/L Chloride 103 (98-107) mEq/L Carbon Dioxide 31 (21-32) mEq/L Anion Gap 5.9 (5-15) BUN 19 H (7-18) mg/dL Creatinine 0.8 (0.55-1.02) mg/dL Est Cr Clr Drug Dosing 48.72 mL/min Estimated GFR (MDRD) > 60 (>60) mL/min BUN/Creatinine Ratio 23.8 H (14-18) Glucose 92 (83-115) mg/dL Calcium 8.7 (8.5-10.1) mg/dL Total Bilirubin 0.5 (0.2-1.0) mg/dL AST 29 (15-37) U/L ALT 28 (14-59) U/L Alkaline Phosphatase 38 L (46-116) U/L Total Protein 5.4 L (6.4-8.2) g/dl Albumin 2.9 L (3.4-5.0) g/dl Globulin 2.5 gm/dL Albumin/Globulin Ratio 1.2 (1-2) Med Orders - Current: Current Medications Aspirin (Ecotrin) 325 mg PO BID [facility] Last Admin: 12/30/16 08:39 Dose: 325 mg Azathioprine (Imuran) 50 mg PO BID [facility] Last Admin: 12/30/16 08:40 Dose: 50 mg Betamethasone Valerate (Valisone 0.1% Lotion) 0 ml TOP ASDIRECTED PRN PRN Reason: Pain Bisacodyl (Dulcolax) 5 mg PO DAILY PRN PRN Reason: Constipation Diltiazem HCl (Cardizem Cd) 300 mg PO DAILY [facility] Last Admin: 12/30/16 08:39 Dose: 300 mg Diphenhydramine HCl (Benadryl) 25 mg IVPUSH Q6H PRN PRN Reason: Itching Last Admin: 12/29/16 20:43 Dose: 25 mg Docusate Sodium (Colace) 100 mg PO BID [facility] Last Admin: 12/30/16 08:39 Dose: 100 mg Famotidine (Pepcid) 20 mg PO BID [facility] Last Admin: 12/30/16 08:39 Dose: 20 mg Gabapentin (Neurontin) 300 mg PO TID [facility] Last Admin: 12/30/16 08:39 Dose: 300 mg Hydralazine HCl (Apresoline) 10 mg IVPUSH Q4H PRN PRN Reason: Hypertension Hydrochlorothiazide (Hydrochlorothiazide) 12.5 mg PO DAILY [facility] Last Admin: 12/30/16 08:39 Dose: 12.5 mg Hydroxychloroquine Sulfate (Plaquenil) 200 mg PO BID [facility] Last Admin: 12/30/16 08:39 Dose: 200 mg Losartan Potassium (Cozaar) 50 mg PO DAILY [facility] Last Admin: 12/30/16 08:38 Dose: 50 mg Magnesium Hydroxide (Milk Of Magnesia) 30 ml PO BID PRN PRN Reason: Constipation Metoprolol Tartrate (Lopressor) 5 mg IVPUSH Q4H PRN PRN Reason: Tachycardia Morphine Sulfate (Morphine) 2 mg IVPUSH Q2H PRN PRN Reason: Breakthrough Pain Multivitamins (Thera) 1 each PO WITHBREAKFAST [facility] Last Admin: 12/30/16 06:42 Dose: 1 each Ondansetron HCl (Zofran) 4 mg IVPUSH Q6H PRN PRN Reason: Nausea/Vomiting Oxycodone/Acetaminophen (Percocet 325-5 Mg) 1 - 2 tab PO Q4H PRN PRN Reason: Pain Last Admin: 12/30/16 08:40 Dose: 2 tab Lysine 500 Mg 0 each PO DAILY [facility] Last Admin: 12/30/16 08:41 Dose: Not Given Prednisone (Prednisone) 5 mg PO DAILY [facility] Last Admin: 12/30/16 08:39 Dose: 5 mg Senna (Senna) 8.6 mg PO BID PRN PRN Reason: Constipation Sodium Chloride (Saline Flush) 10 ml FLUSH ASDIRECTED PRN PRN Reason: Keep Vein Open Discontinued Medications Bupivacaine HCl (Marcaine 0.25%) Confirm Administered Dose 30 ml .ROUTE .STK- MED ONE Stop: 12/29/16 06:23 Last Admin: 12/29/16 08:20 Dose: 30 ml Cefazolin Sodium (Ancef) Confirm Administered Dose 2 gm .ROUTE .STK-MED ONE Stop: 12/29/16 06:20 Last Admin: 12/29/16 08:15 Dose: 2 gm Cefazolin Sodium (Ancef) Confirm Administered Dose 2 gm .ROUTE .STK-MED ONE Stop: 12/29/16 06:47 Morphine Sulfate 8 mg/Epinephrine HCl 0.3 mg/Cefuroxime Sodium 750 mg/Ketorolac Tromethamine 30 mg/Sodium Chloride 27.9 ml 0 mg .XX ONETIME ONE Stop: 12/29/16 07:31 Last Admin: 12/29/16 13:09 Dose: Not Given Diphenhydramine HCl (Benadryl) 25 mg IVPUSH Q6H PRN PRN Reason: pruritis Stop: 12/29/16 10:00 Diphenhydramine HCl (Benadryl) 25 mg IVPUSH Q6H PRN PRN Reason: pruritis Stop: 12/29/16 16:00 Diphenhydramine HCl (Benadryl) 25 mg IVPUSH Q6H PRN PRN Reason: pruritis Hydralazine HCl (Apresoline) 20 mg IVPUSH Q4H PRN PRN Reason: Hypertension Hydrocortisone Sodium Succinate (Solu-Cortef) Confirm Administered Dose 100 mg .ROUTE .STK-MED ONE Stop: 12/29/16 07:30 Lactated Ringer's (Ringers, Lactated) 1,000 mls @ 125 mls/hr IV ASDIRECTED [facility] Last Admin: 12/29/16 10:06 Dose: 125 mls/hr Cefazolin Sodium/Dextrose 2 gm (/ Premix) 50 mls @ 100 mls/hr IV Q8H [facility] Stop: 12/30/16 07:29 Last Admin: 12/30/16 06:41 Dose: 100 mls/hr Lactated Ringer's (Ringers, Lactated) Confirm Administered Dose 1,000 mls @ as directed .ROUTE .STK-MED ONE Stop: 12/29/16 07:31 Iodine (Iodine 2% Mild Tincture) Confirm Administered Dose 30 ml .ROUTE .STK- MED ONE Stop: 12/29/16 06:20 Last Admin: 12/29/16 08:11 Dose: 18 ml Lidocaine/Sodium Bicarbonate (Buffered Lidocaine 1% In Ns 8.4%) 0.25 ml IV ONETIME PRN PRN Reason: Prior to IV Start Last Admin: 12/29/16 06:25 Dose: 0.25 ml Lorazepam (Ativan) 2 mg IVPUSH Q4H PRN PRN Reason: Seizures Lorazepam (Ativan) 0 mg IVPUSH Q4H PRN; Protocol PRN Reason: Withdrawal Symptoms Miscellaneous Information (Remove Patch) 1 ea TRDERM DAILY [facility] Morphine Sulfate (Duramorph Pf) Confirm Administered Dose 10 mg .ROUTE .STK-MED ONE Stop: 12/29/16 06:47 Naloxone HCl (Narcan) 0.1 mg IVPUSH Q5M PRN PRN Reason: Oversedation Stop: 12/29/16 09:16 Nicotine (Habitrol) 21 mg TRDERM DAILY [facility] Nicotine (Habitrol) 21 mg TRDERM ONETIME ONE Stop: 12/29/16 16:04 Last Admin: 12/29/16 17:03 Dose: Not Given Ondansetron HCl (Zofran) Confirm Administered Dose 4 mg .ROUTE .STK-MED ONE Stop: 12/29/16 06:47 Ondansetron HCl (Zofran) 4 mg IVPUSH ONETIME PRN PRN Reason: Nausea/Vomiting Stop: 12/29/16 10:00 Phenylephrine HCl (Tico-Synephrine) Confirm Administered Dose 10 mg .ROUTE .STK- MED ONE Stop: 12/29/16 08:39 Propofol (Diprivan 20 Ml) Confirm Administered Dose 200 mg .ROUTE .STK-MED ONE Stop: 12/29/16 06:50 Propofol (Diprivan 20 Ml) Confirm Administered Dose 200 mg .ROUTE .STK-MED ONE Stop: 12/29/16 08:00 Sodium Chloride (Saline Flush) Confirm Administered Dose 10 ml .ROUTE .STK-MED ONE Stop: 12/29/16 06:47 Tranexamic Acid (Cyklokapron) Confirm Administered Dose 1,000 mg .ROUTE .STK- MED ONE Stop: 12/29/16 06:20 Last Admin: 12/29/16 08:26 Dose: 1,000 mg - Exam Quality Assessment: DVT Prophylaxis General: Alert, Oriented, Cooperative, No Acute Distress HEENT: Pupils Equal, Pupils Reactive, EOMI, Mucous Membr. Moist/[place] Neck: Supple Lungs: Clear to Auscultation, Normal Respiratory Effort, Decreased Breath Sounds (bases) Cardiovascular: Regular Rate, Regular Rhythm GI/Abdominal Exam: Normal Bowel Sounds, Soft, Non-Tender, No Organomegaly (Female) Exam: Deferred Extremities: Other (scd's, teds, ice to lt knee, dressing CDI to lt knee; CMS + to LE) Peripheral Pulses: 1+: Dorsalis Pedis (L), Dorsalis Pedis (R) Skin: Warm Wound/Incisions: Dressing Dry and Intact Neurological: No New Focal Deficit Psy/Mental Status: Alert, Normal Affect, Normal Mood Consult PN Assessment/Plan POD#: 1 Procedures: Procedures BONE IMAGING 3 PHASE (10/06/16) DRAIN/INJ JOINT/BURSA W/O US (05/13/16) DXA BONE DENSITY AXIAL (11/05/16) EMERGENCY DEPT VISIT (03/27/16) EMERGENCY DEPT VISIT (11/08/14) X-RAY EXAM OF ANKLE (11/08/14) X-RAY EXAM OF LOWER LEG (11/08/14) X-RAY EXAM OF WRIST (03/27/16) (1) S/P total knee arthroplasty SNOMED Code(s): 9881139822779, 336052384, 4165150865681 Code(s): Z96.659 - PRESENCE OF UNSPECIFIED ARTIFICIAL KNEE JOINT Priority: High Current Visit: Yes Qualifiers: Laterality: left Qualified Code(s): Z96.652 - Presence of left artificial knee joint (2) Osteoarthritis SNOMED Code(s): 563363148 Code(s): M19.90 - UNSPECIFIED OSTEOARTHRITIS, UNSPECIFIED SITE Priority: High Current Visit: Yes Qualifiers: Osteoarthritis location: knee Osteoarthritis type: primary Laterality: left Qualified Code(s): M17.12 - Unilateral primary osteoarthritis, left knee (3) Lupus SNOMED Code(s): 86011893, 759972748 Code(s): M32.9 - SYSTEMIC LUPUS ERYTHEMATOSUS, UNSPECIFIED Priority: Medium Current Visit: No Qualifiers: Systemic lupus erythematosus type: unspecified Systemic lupus erythematosus organ involvement: unspecified Qualified Code(s): M32.9 - Systemic lupus erythematosus, unspecified (4) HTN (hypertension) SNOMED Code(s): 83290673 Code(s): I10 - ESSENTIAL (PRIMARY) HYPERTENSION Priority: Medium Current Visit: No Qualifiers: Hypertension type: essential hypertension Qualified Code(s): I10 - Essential (primary) hypertension (5) Pancytopenia SNOMED Code(s): 601624999 Code(s): D61.818 - OTHER PANCYTOPENIA Priority: Medium Current Visit: No (6) Osteopenia SNOMED Code(s): 713449815 Code(s): M85.80 - OTH DISRD OF BONE DENSITY AND STRUCTURE, UNSPECIFIED SITE Priority: Medium Current Visit: No Qualifiers: Osteopenia location: unspecified Qualified Code(s): M85.80 - Other specified disorders of bone density and structure, unspecified site (7) Macular degeneration SNOMED Code(s): 221419229 Code(s): H35.30 - UNSPECIFIED MACULAR DEGENERATION Priority: Medium Current Visit: No Problem List Initiated/Reviewed/Updated: Yes My Orders Last 24 Hours: My Active Orders 12/30/16 09:30 Consult to [employer] [CONS] Routine Plan: POD #1- Lt TKA, Dr. Stahl -Pain management and DVT prohylax per Primary Team- Ortho -PT/OT -IS/RT -Hgb stable at 10.9 -Low protein levels on labs today- it instructor consult if not already done preoperatively. Chronic conditions -Lupus- resume home meds today; plaquenil and prednisone -HTN- resume home meds- stable -Pancytopenia- stable at 136 today Other: GI prophylax CM/SW for assist with DC planning- plans dc home today with family: OK for DC home today from Hospitalist standoint. Patient is Full Code Status.
[2016-12-30 12:06] VITALS: BP 140/66
--- NOTE | 2016-12-30 12:28 | PCM48HPAN ---
Post Anesthesia Note - EVALUATION WITHIN 48HRS OF ANESTHETIC Vital Signs in Normal Range: Yes Patient Participated in Evaluation: Yes Respiratory Function Stable: Yes Airway Patent: Yes Cardiovascular Function Stable: Yes Hydration Status Stable: Yes Pain Control Satisfactory: Yes Nausea and Vomiting Control Satisfactory: Yes Mental Status Recovered: Yes
--- NOTE | 2016-12-30 12:37 | PCM.SURGPN ---
- General Info Date of Service: 12/30/16 POD#: 1 Functional Status: Reports: Pain Controlled, Tolerating Diet, Ambulating, Urinating, Incentive Spirometry. Denies: New Symptoms - Review of Systems General: Denies: Fever, Chills Musculoskeletal: Reports: Other (The pt reports her pain has been controlled.) - Patient Data Vitals - Most Recent: Last Vital Signs Temp 98.1 F 12/30/16 08:07 Pulse 88 12/30/16 11:37 Resp 14 12/30/16 11:37 BP 140/66 12/30/16 11:37 Pulse Ox 93 L 12/30/16 11:37 Weight - Most Recent: 139 lb 3.2 oz I&O - Last 24 Hours: Intake & Output 12/29/16 12/30/16 12/30/16 22:59 06:59 14:59 Intake Total 1210 450 180 Output Total 525 Balance 685 450 180 Lab Results Last 24 Hrs: Laboratory Results - last 24 hr 12/30/16 12/30/16 Range/Units 05:50 05:50 WBC 5.36 (3.98-10.04) K/mm3 RBC 3.53 L (3.98-5.22) M/mm3 Hgb 10.9 L (11.2-15.7) gm/L Hct 33.6 L (34.1-44.9) % MCV 95.2 H (79.4-94.8) fl MCH 30.9 (25.6-32.2) pg MCHC 32.4 (32.2-35.5) g/dl RDW Std Deviation 53.2 H (36.4-46.3) fL Plt Count 136 L (182-369) K/mm3 MPV 10.9 (9.4-12.3) fl Neut % (Auto) 73.8 H (34.0-71.1) % Lymph % (Auto) 13.6 L (19.3-51.7) % [place] % (Auto) 11.4 (4.7-12.5) % Eos % (Auto) 0.4 L (0.7-5.8) Baso % (Auto) 0.2 (0.1-1.2) % Neut # (Auto) 3.96 (1.56-6.13) K/mm3 Lymph # (Auto) 0.73 L (1.18-3.74) K/mm3 [place] # (Auto) 0.61 H (0.24-0.36) K/mm3 Eos # (Auto) 0.02 L (0.04-0.36) K/mm3 Baso # (Auto) 0.01 (0.01-0.08) K/mm3 Sodium 136 (136-145) mEq/L Potassium 3.9 (3.5-5.1) mEq/L Chloride 103 (98-107) mEq/L Carbon Dioxide 31 (21-32) mEq/L Anion Gap 5.9 (5-15) BUN 19 H (7-18) mg/dL Creatinine 0.8 (0.55-1.02) mg/dL Est Cr Clr Drug Dosing 48.72 mL/min Estimated GFR (MDRD) > 60 (>60) mL/min BUN/Creatinine Ratio 23.8 H (14-18) Glucose 92 (83-115) mg/dL Calcium 8.7 (8.5-10.1) mg/dL Total Bilirubin 0.5 (0.2-1.0) mg/dL AST 29 (15-37) U/L ALT 28 (14-59) U/L Alkaline Phosphatase 38 L (46-116) U/L Total Protein 5.4 L (6.4-8.2) g/dl Albumin 2.9 L (3.4-5.0) g/dl Globulin 2.5 gm/dL Albumin/Globulin Ratio 1.2 (1-2) Med Orders - Current: Current Medications Aspirin (Ecotrin) 325 mg PO BID [facility] Last Admin: 12/30/16 08:39 Dose: 325 mg Azathioprine (Imuran) 50 mg PO BID [facility] Last Admin: 12/30/16 08:40 Dose: 50 mg Betamethasone Valerate (Valisone 0.1% Lotion) 0 ml TOP ASDIRECTED PRN PRN Reason: Pain Bisacodyl (Dulcolax) 5 mg PO DAILY PRN PRN Reason: Constipation Diltiazem HCl (Cardizem Cd) 300 mg PO DAILY [facility] Last Admin: 12/30/16 08:39 Dose: 300 mg Diphenhydramine HCl (Benadryl) 25 mg IVPUSH Q6H PRN PRN Reason: Itching Last Admin: 12/29/16 20:43 Dose: 25 mg Docusate Sodium (Colace) 100 mg PO BID [facility] Last Admin: 12/30/16 08:39 Dose: 100 mg Famotidine (Pepcid) 20 mg PO BID [facility] Last Admin: 12/30/16 08:39 Dose: 20 mg Gabapentin (Neurontin) 300 mg PO TID [facility] Last Admin: 12/30/16 08:39 Dose: 300 mg Hydralazine HCl (Apresoline) 10 mg IVPUSH Q4H PRN PRN Reason: Hypertension Hydrochlorothiazide (Hydrochlorothiazide) 12.5 mg PO DAILY [facility] Last Admin: 12/30/16 08:39 Dose: 12.5 mg Hydroxychloroquine Sulfate (Plaquenil) 200 mg PO BID [facility] Last Admin: 12/30/16 08:39 Dose: 200 mg Losartan Potassium (Cozaar) 50 mg PO DAILY [facility] Last Admin: 12/30/16 08:38 Dose: 50 mg Magnesium Hydroxide (Milk Of Magnesia) 30 ml PO BID PRN PRN Reason: Constipation Metoprolol Tartrate (Lopressor) 5 mg IVPUSH Q4H PRN PRN Reason: Tachycardia Morphine Sulfate (Morphine) 2 mg IVPUSH Q2H PRN PRN Reason: Breakthrough Pain Multivitamins (Thera) 1 each PO WITHBREAKFAST [facility] Last Admin: 12/30/16 06:42 Dose: 1 each Ondansetron HCl (Zofran) 4 mg IVPUSH Q6H PRN PRN Reason: Nausea/Vomiting Oxycodone/Acetaminophen (Percocet 325-5 Mg) 1 - 2 tab PO Q4H PRN PRN Reason: Pain Last Admin: 12/30/16 08:40 Dose: 2 tab Lysine 500 Mg 0 each PO DAILY [facility] Last Admin: 12/30/16 08:41 Dose: Not Given Prednisone (Prednisone) 5 mg PO DAILY [facility] Last Admin: 12/30/16 08:39 Dose: 5 mg Senna (Senna) 8.6 mg PO BID PRN PRN Reason: Constipation Sodium Chloride (Saline Flush) 10 ml FLUSH ASDIRECTED PRN PRN Reason: Keep Vein Open Discontinued Medications Bupivacaine HCl (Marcaine 0.25%) Confirm Administered Dose 30 ml .ROUTE .[facility] ONE Stop: 12/29/16 06:23 Last Admin: 12/29/16 08:20 Dose: 30 ml Cefazolin Sodium (Ancef) Confirm Administered Dose 2 gm .ROUTE .[facility]-MED ONE Stop: 12/29/16 06:20 Last Admin: 12/29/16 08:15 Dose: 2 gm Cefazolin Sodium (Ancef) Confirm Administered Dose 2 gm .ROUTE .STK-MED ONE Stop: 12/29/16 06:47 Morphine Sulfate 8 mg/Epinephrine HCl 0.3 mg/Cefuroxime Sodium 750 mg/Ketorolac Tromethamine 30 mg/Sodium Chloride 27.9 ml 0 mg .XX ONETIME ONE Stop: 12/29/16 07:31 Last Admin: 12/29/16 13:09 Dose: Not Given Diphenhydramine HCl (Benadryl) 25 mg IVPUSH Q6H PRN PRN Reason: pruritis Stop: 12/29/16 10:00 Diphenhydramine HCl (Benadryl) 25 mg IVPUSH Q6H PRN PRN Reason: pruritis Stop: 12/29/16 16:00 Diphenhydramine HCl (Benadryl) 25 mg IVPUSH Q6H PRN PRN Reason: pruritis Hydralazine HCl (Apresoline) 20 mg IVPUSH Q4H PRN PRN Reason: Hypertension Hydrocortisone Sodium Succinate (Solu-Cortef) Confirm Administered Dose 100 mg .ROUTE .STK-MED ONE Stop: 12/29/16 07:30 Lactated Ringer's (Ringers, Lactated) 1,000 mls @ 125 mls/hr IV ASDIRECTED [facility] Last Admin: 12/29/16 10:06 Dose: 125 mls/hr Cefazolin Sodium/Dextrose 2 gm (/ Premix) 50 mls @ 100 mls/hr IV Q8H [facility] Stop: 12/30/16 07:29 Last Admin: 12/30/16 06:41 Dose: 100 mls/hr Lactated Ringer's (Ringers, Lactated) Confirm Administered Dose 1,000 mls @ as directed .ROUTE .STK-MED ONE Stop: 12/29/16 07:31 Iodine (Iodine 2% Mild Tincture) Confirm Administered Dose 30 ml .ROUTE .STK- MED ONE Stop: 12/29/16 06:20 Last Admin: 12/29/16 08:11 Dose: 18 ml Lidocaine/Sodium Bicarbonate (Buffered Lidocaine 1% In Ns 8.4%) 0.25 ml IV ONETIME PRN PRN Reason: Prior to IV Start Last Admin: 12/29/16 06:25 Dose: 0.25 ml Lorazepam (Ativan) 2 mg IVPUSH Q4H PRN PRN Reason: Seizures Lorazepam (Ativan) 0 mg IVPUSH Q4H PRN; Protocol PRN Reason: Withdrawal Symptoms Miscellaneous Information (Remove Patch) 1 ea TRDERM DAILY [facility] Morphine Sulfate (Duramorph Pf) Confirm Administered Dose 10 mg .ROUTE .STK-MED ONE Stop: 12/29/16 06:47 Naloxone HCl (Narcan) 0.1 mg IVPUSH Q5M PRN PRN Reason: Oversedation Stop: 12/29/16 09:16 Nicotine (Habitrol) 21 mg TRDERM DAILY [facility] Nicotine (Habitrol) 21 mg TRDERM ONETIME ONE Stop: 12/29/16 16:04 Last Admin: 12/29/16 17:03 Dose: Not Given Ondansetron HCl (Zofran) Confirm Administered Dose 4 mg .ROUTE .STK-MED ONE Stop: 12/29/16 06:47 Ondansetron HCl (Zofran) 4 mg IVPUSH ONETIME PRN PRN Reason: Nausea/Vomiting Stop: 12/29/16 10:00 Phenylephrine HCl (Tico-Synephrine) Confirm Administered Dose 10 mg .ROUTE .STK- MED ONE Stop: 12/29/16 08:39 Propofol (Diprivan 20 Ml) Confirm Administered Dose 200 mg .ROUTE .STK-MED ONE Stop: 12/29/16 06:50 Propofol (Diprivan 20 Ml) Confirm Administered Dose 200 mg .ROUTE .STK-MED ONE Stop: 12/29/16 08:00 Sodium Chloride (Saline Flush) Confirm Administered Dose 10 ml .ROUTE .STK-MED ONE Stop: 12/29/16 06:47 Tranexamic Acid (Cyklokapron) Confirm Administered Dose 1,000 mg .ROUTE .STK- MED ONE Stop: 12/29/16 06:20 Last Admin: 12/29/16 08:26 Dose: 1,000 mg - Exam Wound/Incisions: Dressing Dry and Intact General: Alert, Cooperative, No Acute Distress Lungs: Normal Respiratory Effort Extremities: Other (NVS intact for LLE. Abebe's negative. Indepdent SLR left.) - Problem List Review Problem List Initiated/Reviewed/Updated: Yes - My Orders Last 24 Hours: Active Orders 24 hr Category Date Time Status Ready for Discharge [RC] PER UNIT ROUTINE Care 12/30/16 12:33 Active Consult to [employer] [CONS] Routine Cons 12/30/16 09:30 Active Aspirin [Ecotrin] Med 12/30/16 09:00 Active 325 mg PO BID Diltiazem [Cardizem CD] Med 12/30/16 09:00 Active 300 mg PO DAILY Gabapentin [Neurontin] Med 12/29/16 15:00 Active 300 mg PO TID Hydrochlorothiazide Med 12/30/16 09:00 Active 12.5 mg PO DAILY Hydroxychloroquine [Plaquenil] Med 12/29/16 21:00 Active 200 mg PO BID Losartan [Cozaar] Med 12/30/16 09:00 Active 50 mg PO DAILY Metoprolol Tartrate [Lopressor] Med 12/29/16 16:04 Active 5 mg IVPUSH Q4H PRN Multivitamins,Therapeutic [Thera] Med 12/30/16 07:00 Active 1 each PO WITHBREAKFAST Patient's Own Medication [Ptom] Med 12/30/16 09:00 Active 0 each PO DAILY azaTHIOprine [Imuran] Med 12/29/16 21:00 Active 50 mg PO BID diphenhydrAMINE [Benadryl] Med 12/29/16 16:51 Active 25 mg IVPUSH Q6H PRN hydrALAZINE [Apresoline] Med 12/29/16 16:49 Active 10 mg IVPUSH Q4H PRN predniSONE Med 12/30/16 09:00 Active 5 mg PO DAILY Medication Orders Aspirin (Ecotrin) 325 mg PO BID [facility] Last Admin: 12/30/16 08:39 Dose: 325 mg Azathioprine (Imuran) 50 mg PO BID [facility] Last Admin: 12/30/16 08:40 Dose: 50 mg Admin: 12/29/16 20:40 Dose: 50 mg Betamethasone Valerate (Valisone 0.1% Lotion) 0 ml TOP ASDIRECTED PRN PRN Reason: Pain Bisacodyl (Dulcolax) 5 mg PO DAILY PRN PRN Reason: Constipation Diltiazem HCl (Cardizem Cd) 300 mg PO DAILY [facility] Last Admin: 12/30/16 08:39 Dose: 300 mg Diphenhydramine HCl (Benadryl) 25 mg IVPUSH Q6H PRN PRN Reason: Itching Last Admin: 12/29/16 20:43 Dose: 25 mg Docusate Sodium (Colace) 100 mg PO BID [facility] Last Admin: 12/30/16 08:39 Dose: 100 mg Admin: 12/29/16 20:25 Dose: 100 mg Admin: 12/29/16 15:24 Dose: 100 mg Famotidine (Pepcid) 20 mg PO BID [facility] Last Admin: 12/30/16 08:39 Dose: 20 mg Admin: 12/29/16 20:25 Dose: 20 mg Admin: 12/29/16 15:24 Dose: Not Given Gabapentin (Neurontin) 300 mg PO TID [facility] Last Admin: 12/30/16 08:39 Dose: 300 mg Admin: 12/29/16 20:25 Dose: 300 mg Admin: 12/29/16 15:24 Dose: 300 mg Hydralazine HCl (Apresoline) 10 mg IVPUSH Q4H PRN PRN Reason: Hypertension Hydrochlorothiazide (Hydrochlorothiazide) 12.5 mg PO DAILY [facility] Last Admin: 12/30/16 08:39 Dose: 12.5 mg Hydroxychloroquine Sulfate (Plaquenil) 200 mg PO BID [facility] Last Admin: 12/30/16 08:39 Dose: 200 mg Admin: 12/29/16 20:25 Dose: 200 mg Losartan Potassium (Cozaar) 50 mg PO DAILY [facility] Last Admin: 12/30/16 08:38 Dose: 50 mg Magnesium Hydroxide (Milk Of Magnesia) 30 ml PO BID PRN PRN Reason: Constipation Metoprolol Tartrate (Lopressor) 5 mg IVPUSH Q4H PRN PRN Reason: Tachycardia Morphine Sulfate (Morphine) 2 mg IVPUSH Q2H PRN PRN Reason: Breakthrough Pain Multivitamins (Thera) 1 each PO WITHBREAKFAST [facility] Last Admin: 12/30/16 06:42 Dose: 1 each Ondansetron HCl (Zofran) 4 mg IVPUSH Q6H PRN PRN Reason: Nausea/Vomiting Oxycodone/Acetaminophen (Percocet 325-5 Mg) 1 - 2 tab PO Q4H PRN PRN Reason: Pain Last Admin: 12/30/16 08:40 Dose: 2 tab Admin: 12/30/16 04:31 Dose: 2 tab Admin: 12/29/16 20:25 Dose: 2 tab Lysine 500 Mg 0 each PO DAILY [facility] Last Admin: 12/30/16 08:41 Dose: Prednisone (Prednisone) 5 mg PO DAILY [facility] Last Admin: 12/30/16 08:39 Dose: 5 mg Senna (Senna) 8.6 mg PO BID PRN PRN Reason: Constipation Sodium Chloride (Saline Flush) 10 ml FLUSH ASDIRECTED PRN PRN Reason: Keep Vein Open - Assessment Assessment (Free Text/Narrative):: POD#1 - left TKA - Plan Plan (Free Text/Narrative):: 1. ASA 325mg BID for VTE prophylaxis. SCDs, TEDs, frequent mobility. 2. Discharge to home today. Inpatient therapy goals met and the pt has been cleared medically. 3. Outpatient P.T. 4. Hgb 10.9. The pt's case was discussed with Dr. Stalh today.
--- NOTE | 2016-12-31 12:19 | PCM.DCSUM1 ---
Discharge Summary - Hospital Course Brief History: Olamide is a 76 yo female who underwent left TKA with Dr. Stahl on 12-29-2016. The procedure was completed under spinal anesthesia. The pt tolerated the procedure well and was admitted to the Medical-Surgical Unit. Medical management was provided by the Hospitalist service. The pt's Hospital course was uneventful. The pt's Hgb on POD#1 was 10.9. On POD#1, 325mg BID was initiated for VTE prophylaxis. SCDs and TEDs were also ordered. A Mepilex dressing was placed at the incision site at the time of surgery and remained clean and dry. The pt participated in P.T. and O.T. and progressed well. The pt was allowed to WBAT. On POD#1, the pt was deemed appropriate to discharge to home with her family. - Discharge Data Discharge Date: 12/30/16 Discharge Disposition: Home, Self-Care 01 Condition: Good - Patient Summary/Data Operative Procedure(s) Performed: left total knee arthroplasty Consults: Consultations 12/29/16 07:08 Consult to Case Management [CONS] Routine Consult to Physician [CONS] Routine OT Evaluation and Treatment [CONS] Routine 12/29/16 07:13 PT Evaluation and Treatment [CONS] Routine 12/30/16 09:30 Consult to Media Job Titles [CONS] Routine - Patient Instructions Diet: Usual Diet as Tolerated Activity: Apply Ice, As Tolerated, Elevate Extremity, Full Weight Bearing Driving: Do Not Drive Showering/Bathing: May Shower Wound/Incision Care: Keep Operative Site/Wound Site Clean and Dry, Do NOT Change Dressing Notify Provider of: Fever, Increased Pain, Swelling and Redness, Drainage, Nausea and/or Vomiting Other/Special Instructions: Please get up and moving around every hour while awake. This helps to prevent blood clots. Please use your walker and have help with mobility as needed. Please take a 325mg ASPIRIN TWICE DAILY. This also helps to prevent blood clots. You may schedule for P.T. Use the pain medication as needed. The medication may cause drowsiness and constipation. Contact your primary care provider for instructions if you are constipated. You may use a stool softener like docusate sodium or Colace 100mg twice daily and/or a laxative like Miralax daily for constipation. Wear the SHARYN hose during the day and you may remove these at night. Place ice to the knee often. Place a towel between your skin and the blue pad. Schedule an appointment with your primary care provider for 'routine post-op care'. Call the Clinic with questions or concerns - [phone]. - Discharge Plan Prescriptions/Med Rec: Acetaminophen/oxyCODONE [Percocet 325-5 MG] 1 - 2 tab PO Q4H PRN #60 tablet PRN Reason: Pain Aspirin [Ecotrin] 325 mg PO BID #84 tab.ec Home Medications: Home Meds Gabapentin [Neurontin] 300 mg PO TID 03/27/16 [History] Hydroxychloroquine [Plaquenil] 200 mg PO BID 03/27/16 [History] Losartan/Hydrochlorothiazide [Losartan-HCTZ 50-12.5 MG] 1 tab PO BID 03/27/16 [ History] azaTHIOprine [Azathioprine] 50 mg PO BID 03/27/16 [History] Aspirin [Halfprin] 81 mg PO DAILY 12/26/16 [History] Betamethasone Valerate 1 applic TP ASDIRECTED PRN 12/26/16 [History] Biotin 5,000 mcg PO DAILY 12/26/16 [History] Cranberry 400 mg PO BID 12/26/16 [History] Diltiazem HCl [Diltiazem ER] 300 mg PO DAILY 12/26/16 [History] FA/Lycopene/Lut/MV,Ca,Iron,Min [Centrum] 1 tab PO DAILY 12/26/16 [History] Lysine 500 mg PO DAILY 12/26/16 [History] Zolpidem Tartrate [Ambien] 5 mg PO BEDTIME PRN 12/26/16 [History] predniSONE [Prednisone] 5 mg PO DAILY 12/26/16 [History] Acetaminophen/oxyCODONE [Percocet 325-5 MG] 1 - 2 tab PO Q4H PRN #60 tablet 06/17 [Rx] Aspirin [Ecotrin] 325 mg PO BID #84 tab.ec 12/30/16 [Rx] Patient Handouts: Total Knee Replacement, Care After, [id number], Total Knee Replacement, [id number], Aspirin, ASA oral tablets Referrals: Joann Corona MD [Primary Care Provider] - 01/08/17 2:00 pm (Please follow-up with your primary care doctor, Joann Corona, for a post-surgical follow-up appointment on January 08 at 200pm. If this time does not work for you, please call and reschedule. ) Cassi Plasencia PA-C [[employer]ician [employer] Associate] - 01/06/17 1:15 pm (Please follow-up with your previously scheduled appointments. The first one is with Dr. Stahl on January 06 at 1:15pm and the next scheduled appointment is on January 13 at 11:15am. ) - Patient Data Vitals - Most Recent: Last Vital Signs Temp 98.1 F 12/30/16 08:07 Pulse 88 12/30/16 11:37 Resp 14 12/30/16 11:37 BP 140/66 12/30/16 11:37 Pulse Ox 93 L 12/30/16 11:37 Weight - Most Recent: 139 lb 3.2 oz Med Orders - Current: Current Medications Discontinued Medications Aspirin (Ecotrin) 325 mg PO BID [facility] Last Admin: 12/30/16 08:39 Dose: 325 mg Azathioprine (Imuran) 50 mg PO BID [facility] Last Admin: 12/30/16 08:40 Dose: 50 mg Betamethasone Valerate (Valisone 0.1% Lotion) 0 ml TOP ASDIRECTED PRN PRN Reason: Pain Bisacodyl (Dulcolax) 5 mg PO DAILY PRN PRN Reason: Constipation Bupivacaine HCl (Marcaine 0.25%) Confirm Administered Dose 30 ml .ROUTE .[facility]- MED ONE Stop: 12/29/16 06:23 Last Admin: 12/29/16 08:20 Dose: 30 ml Cefazolin Sodium (Ancef) Confirm Administered Dose 2 gm .ROUTE .STK-MED ONE Stop: 12/29/16 06:20 Last Admin: 12/29/16 08:15 Dose: 2 gm Cefazolin Sodium (Ancef) Confirm Administered Dose 2 gm .ROUTE .STK-MED ONE Stop: 12/29/16 06:47 Morphine Sulfate 8 mg/Epinephrine HCl 0.3 mg/Cefuroxime Sodium 750 mg/Ketorolac Tromethamine 30 mg/Sodium Chloride 27.9 ml 0 mg .XX ONETIME ONE Stop: 12/29/16 07:31 Last Admin: 12/29/16 13:09 Dose: Not Given Diltiazem HCl (Cardizem Cd) 300 mg PO DAILY [facility] Last Admin: 12/30/16 08:39 Dose: 300 mg Diphenhydramine HCl (Benadryl) 25 mg IVPUSH Q6H PRN PRN Reason: pruritis Stop: 12/29/16 10:00 Diphenhydramine HCl (Benadryl) 25 mg IVPUSH Q6H PRN PRN Reason: pruritis Stop: 12/29/16 16:00 Diphenhydramine HCl (Benadryl) 25 mg IVPUSH Q6H PRN PRN Reason: pruritis Diphenhydramine HCl (Benadryl) 25 mg IVPUSH Q6H PRN PRN Reason: Itching Last Admin: 12/29/16 20:43 Dose: 25 mg Docusate Sodium (Colace) 100 mg PO BID [facility] Last Admin: 12/30/16 08:39 Dose: 100 mg Famotidine (Pepcid) 20 mg PO BID [facility] Last Admin: 12/30/16 08:39 Dose: 20 mg Gabapentin (Neurontin) 300 mg PO TID [facility] Last Admin: 12/30/16 08:39 Dose: 300 mg Hydralazine HCl (Apresoline) 20 mg IVPUSH Q4H PRN PRN Reason: Hypertension Hydralazine HCl (Apresoline) 10 mg IVPUSH Q4H PRN PRN Reason: Hypertension Hydrochlorothiazide (Hydrochlorothiazide) 12.5 mg PO DAILY [facility] Last Admin: 12/30/16 08:39 Dose: 12.5 mg Hydrocortisone Sodium Succinate (Solu-Cortef) Confirm Administered Dose 100 mg .ROUTE .STK-MED ONE Stop: 12/29/16 07:30 Hydroxychloroquine Sulfate (Plaquenil) 200 mg PO BID [facility] Last Admin: 12/30/16 08:39 Dose: 200 mg Lactated Ringer's (Ringers, Lactated) 1,000 mls @ 125 mls/hr IV ASDIRECTED [facility] Last Admin: 12/29/16 10:06 Dose: 125 mls/hr Cefazolin Sodium/Dextrose 2 gm (/ Premix) 50 mls @ 100 mls/hr IV Q8H [facility] Stop: 12/30/16 07:29 Last Admin: 12/30/16 06:41 Dose: 100 mls/hr Lactated Ringer's (Ringers, Lactated) Confirm Administered Dose 1,000 mls @ as directed .ROUTE .[facility]-MED ONE Stop: 12/29/16 07:31 Iodine (Iodine 2% Mild Tincture) Confirm Administered Dose 30 ml .ROUTE .STK- MED ONE Stop: 12/29/16 06:20 Last Admin: 12/29/16 08:11 Dose: 18 ml Lidocaine/Sodium Bicarbonate (Buffered Lidocaine 1% In Ns 8.4%) 0.25 ml IV ONETIME PRN PRN Reason: Prior to IV Start Last Admin: 12/29/16 06:25 Dose: 0.25 ml Lorazepam (Ativan) 2 mg IVPUSH Q4H PRN PRN Reason: Seizures Lorazepam (Ativan) 0 mg IVPUSH Q4H PRN; Protocol PRN Reason: Withdrawal Symptoms Losartan Potassium (Cozaar) 50 mg PO DAILY [facility] Last Admin: 12/30/16 08:38 Dose: 50 mg Magnesium Hydroxide (Milk Of Magnesia) 30 ml PO BID PRN PRN Reason: Constipation Metoprolol Tartrate (Lopressor) 5 mg IVPUSH Q4H PRN PRN Reason: Tachycardia Miscellaneous Information (Remove Patch) 1 ea TRDERM DAILY [facility] Morphine Sulfate (Duramorph Pf) Confirm Administered Dose 10 mg .ROUTE .STK-MED ONE Stop: 12/29/16 06:47 Morphine Sulfate (Morphine) 2 mg IVPUSH Q2H PRN PRN Reason: Breakthrough Pain Multivitamins (Thera) 1 each PO WITHBREAKFAST [facility] Last Admin: 12/30/16 06:42 Dose: 1 each Naloxone HCl (Narcan) 0.1 mg IVPUSH Q5M PRN PRN Reason: Oversedation Stop: 12/29/16 09:16 Nicotine (Habitrol) 21 mg TRDERM DAILY [facility] Nicotine (Habitrol) 21 mg TRDERM ONETIME ONE Stop: 12/29/16 16:04 Last Admin: 12/29/16 17:03 Dose: Not Given Ondansetron HCl (Zofran) Confirm Administered Dose 4 mg .ROUTE .STK-MED ONE Stop: 12/29/16 06:47 Ondansetron HCl (Zofran) 4 mg IVPUSH Q6H PRN PRN Reason: Nausea/Vomiting Ondansetron HCl (Zofran) 4 mg IVPUSH ONETIME PRN PRN Reason: Nausea/Vomiting Stop: 12/29/16 10:00 Oxycodone/Acetaminophen (Percocet 325-5 Mg) 1 - 2 tab PO Q4H PRN PRN Reason: Pain Last Admin: 12/30/16 13:19 Dose: 2 tab Lysine 500 Mg 0 each PO DAILY [facility] Last Admin: 12/30/16 08:41 Dose: Not Given Phenylephrine HCl (Tico-Synephrine) Confirm Administered Dose 10 mg .ROUTE .STK- MED ONE Stop: 12/29/16 08:39 Prednisone (Prednisone) 5 mg PO DAILY [facility] Last Admin: 12/30/16 08:39 Dose: 5 mg Propofol (Diprivan 20 Ml) Confirm Administered Dose 200 mg .ROUTE .STK-MED ONE Stop: 12/29/16 06:50 Propofol (Diprivan 20 Ml) Confirm Administered Dose 200 mg .ROUTE .STK-MED ONE Stop: 12/29/16 08:00 Senna (Senna) 8.6 mg PO BID PRN PRN Reason: Constipation Sodium Chloride (Saline Flush) 10 ml FLUSH ASDIRECTED PRN PRN Reason: Keep Vein Open Sodium Chloride (Saline Flush) Confirm Administered Dose 10 ml .ROUTE .STK-MED ONE Stop: 12/29/16 06:47 Tranexamic Acid (Cyklokapron) Confirm Administered Dose 1,000 mg .ROUTE .STK- MED ONE Stop: 12/29/16 06:20 Last Admin: 12/29/16 08:26 Dose: 1,000 mg *Q Meaningful Use (DIS) - VTE *Q VTE Criteria *Q: - Stroke *Q Stroke Criteria *Q: - AMI *Q AMI Criteria *Q:
== END 2016-12-30 14:01 | disposition home or self-care (01) | DRG 470 ==
LOC: JD.MS 12-29 05:57
PROVIDERS: ADMIT Orthopaedic Surgery; ATTEND Orthopaedic Surgery
PROC: 0SRD0J9 Replacement of Left Knee Joint with Synthetic Substitute, Cemented, Open Approach (ICD-10-PCS; principal; 2016-12-29)
DX: M17.12 Unilateral primary osteoarthritis, left knee (principal); D61.818 Other pancytopenia; I10 Essential (primary) hypertension; M32.9 Systemic lupus erythematosus, unspecified; D69.6 Thrombocytopenia, unspecified; H35.30 Unspecified macular degeneration; Z79.52 Long term (current) use of systemic steroids; Z79.899 Other long term (current) drug therapy; Z88.8 Allergy status to other drugs, medicaments and biological substances
CPT/HCPCS: 01402; 36415; 73560-26-LT; 73560-LT; 80053; 85025; 87641; 94762; 97110-GP; 97116-GP; 97162-GP; 97165-GO; 97530-GO; 97530-GP; 97535-GO; A9270-GY; C1713; C1776; J0171; J0690; J0697; J1200; J1720; J1885; J2270; J2370; J2405; J2704; J3490; J7050; J7120; J7500

== ENCOUNTER 2018-07-19 06:18 | Day surgery (SDC) | payer MEDICARE, OTHER ==
[~2018-07-19 06:18] MED LIST: EPINEPHrine 1 MG/ML 30 ML MDV ONE
[2018-07-19] MEDS ORDERED: Ropivacaine 0.5% 5 MG/ML 30 ML SDV ONE (06:26)
[2018-07-19] MEDS ORDERED: EPINEPHrine 1 MG/ML SDV ONE (06:26)
[2018-07-19] MEDS ORDERED: Lidocaine 1% 4 ML ONE ×2 (06:28→06:29)
[2018-07-19] MEDS ORDERED: fentaNYL 100 MCG/2 ML SDV ONE (06:29)
[2018-07-19] MEDS ORDERED: Propofol 200 MG/20 ML SDV ONE (06:29)
[2018-07-19] MEDS ORDERED: Midazolam 1 MG/ML 2 ML SDV ONE (06:29)
[2018-07-19] MEDS ORDERED: ceFAZolin 1 GM Vial ONE (06:30)
[2018-07-19] MEDS ORDERED: Rocuronium 50 MG/5 ML Vial ONE (06:30)
[2018-07-19] MEDS ORDERED: Ondansetron 4 MG/2 ML SDV ONE (06:30)
[2018-07-19] MEDS ORDERED: fentaNYL 250 MCG/5 ML SDV ONE (06:35)
--- NOTE | 2018-07-19 06:58 | PCM.PREANE ---
Preanesthetic Assessment - Procedure Proposed Procedure: left shoulder video arthroscopy with rotator cuff repair - Anesthesia/Transfusion/Family Hx Anesthesia History: Prior Anesthesia Without Reaction Family History of Anesthesia Reaction: No Transfusion History: Prior Transfusion Without Reaction - Review of Systems General: No Symptoms Pulmonary: No Symptoms Cardiovascular: No Symptoms Gastrointestinal: No Symptoms Neurological: No Symptoms Other: Reports: Easy Bruising - Physical Assessment NPO Status Date: 07/18/18 NPO Status Time: 17:00 O2 Sat by Pulse Oximetry: 98 Respiratory Rate: 12 Vital Signs: Last Vital Signs Temp 98.3 F 07/19/18 06:30 Pulse 88 07/19/18 06:30 Resp 12 07/19/18 06:30 BP 147/78 H 07/19/18 06:30 Pulse Ox 98 07/19/18 06:30 Height: 5 ft 3 in Weight: 59.693 kg ASA Class: 3 Mental Status: Alert & Oriented x3 Dentition: Reports: Dentures (top), Partial (bottom) Thyro-Mental Finger Breadths: 3 Mouth Opening Finger Breadths: 3 ROM/Head Extension: Full Lungs: Clear to Auscultation, Normal Respiratory Effort Cardiovascular: Regular Rate, Regular Rhythm - Allergies Allergies/Adverse Reactions: Allergies Allergy/AdvReac Type Severity Reaction Status Date / Time JANELL Inhibitors Allergy Cannot Verified 07/16/18 12:55 Remember amoxicillin Allergy Cannot Verified 07/16/18 12:55 Remember Sulfa (Sulfonamide Allergy Cannot Verified 07/16/18 12:55 Antibiotics) Remember - Blood Blood Available: No - Acknowledgements Anesthesia Type Planned: General Anesthesia Pt an Appropriate Candidate for the Planned Anesthesia: Yes Alternatives and Risks of Anesthesia Discussed w Pt/Guardian: Yes Pt/Guardian Understands and Agrees with Anesthesia Plan: Yes PreAnesthesia Questionnaire HEENT History: Reports: Impaired Vision, Macular Degeneration, Other (See Below) Other HEENT History: has glasses, dentures Cardiovascular History: Reports: Hypertension Other Cardiovascular History: Dependent edema Respiratory History: Reports: None Gastrointestinal History: Reports: Colon Polyp Genitourinary History: Reports: None 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: Reports: None Musculoskeletal History: Reports: Osteoarthritis, Other (See Below) Other Musculoskeletal History: left shoulder pain Neurological History: Reports: None Other Neuro History: Mild kyphosis Psychiatric History: Reports: None Endocrine/Metabolic History: Reports: Osteopenia Other Endocrine/Metabolic History: Lupus Hematologic History: Reports: Other (See Below) Other Hematologic History: thrombocytopenia, pancytopenia Immunologic History: Reports: SLE Other Immunologic History: Lupus Oncologic (Cancer) History: Reports: None Dermatologic History: Reports: None Other Dermatologic History: Dry skin - Infectious Disease History Infectious Disease History: Reports: Shingles - Past Surgical History Cardiovascular Surgical History: Reports: None Respiratory Surgical History: Reports: None GI Surgical History: Reports: Colonoscopy Female Surgical History: Reports: D&C Male Surgical History: Reports: None Endocrine Surgical History: Reports: None Neurological Surgical History: Reports: None Musculoskeletal Surgical History: Reports: Carpal Tunnel, Knee Replacement Oncologic Surgical History: Reports: Bone Marrow Aspiration, Other (See Below) Other Oncologic Surgeries/Procedures: lymph node biopsy Dermatological Surgical History: Reports: None - SUBSTANCE USE Smoking Status *Q: Never Smoker Tobacco Use Within Last Twelve Months: No Second Hand Smoke Exposure: No Days Per Week of Alcohol Use: 0 Recreational Drug Use History: No - HOME MEDS Home Medications: Home Meds Gabapentin [Neurontin] 300 mg PO TID 03/27/16 [History] Hydroxychloroquine [Plaquenil] 400 mg PO Q48H 03/27/16 [History] Losartan/Hydrochlorothiazide [Losartan-HCTZ 50-12.5 MG] 1 tab PO BID 03/27/16 [ History] Aspirin [Halfprin] 81 mg PO DAILY 12/26/16 [History] Betamethasone Valerate 1 applic TP ASDIRECTED PRN 12/26/16 [History] Biotin 5,000 mcg PO DAILY 12/26/16 [History] Cranberry 400 mg PO BID 12/26/16 [History] FA/Lycopene/Lut/MV,Ca,Iron,Min [Centrum] 1 tab PO DAILY 12/26/16 [History] Lysine 500 mg PO DAILY 12/26/16 [History] Acetaminophen [Tylenol] 650 mg PO Q4H PRN 07/16/18 [History] Diclofenac Sodium [Voltaren 1% Gel] 1 dose TOP BID PRN 07/16/18 [History] Hydroxychloroquine [Plaquenil] 200 mg PO Q48H 07/16/18 [History] azaTHIOprine [Imuran] 50 mg PO BID 07/16/18 [History] dilTIAZem HCl [Diltiazem 24Hr ER] 300 mg PO DAILY 07/16/18 [History] - CURRENT (IN HOUSE) MEDS Current Meds: Current Medications Epinephrine HCl (Adrenalin) 3 mg .XX ONETIME ONE Stop: 07/19/18 07:01 Lactated Ringer's (Ringers, Lactated) 1,000 mls @ 125 mls/hr IV ASDIRECTED ISAI Stop: 07/19/18 23:00 Lidocaine/Sodium Bicarbonate (Buffered Lidocaine 1% In Ns 8.4%) 0.25 ml IDERM ONETIME PRN PRN Reason: Prior to IV Start Stop: 07/19/18 18:00 Sodium Chloride (Saline Flush) 10 ml FLUSH ASDIRECTED PRN PRN Reason: Keep Vein Open Stop: 07/19/18 18:00 Discontinued Medications Cefazolin Sodium (Ancef) Confirm Administered Dose 2 gm .ROUTE .STK-MED ONE Stop: 07/19/18 06:31 Epinephrine HCl (Adrenalin) 3 mg .XX ONETIME ONE Stop: 07/19/18 08:01 Epinephrine HCl (Adrenalin) Confirm Administered Dose 1 mg .ROUTE .STK-MED ONE Stop: 07/19/18 06:27 Fentanyl (Sublimaze) Confirm Administered Dose 100 mcg .ROUTE .STK-MED ONE Stop: 07/19/18 06:30 Fentanyl (Sublimaze) Confirm Administered Dose 250 mcg .ROUTE .STK-MED ONE Stop: 07/19/18 06:36 Lidocaine HCl (Xylocaine-Mpf 1%) Confirm Administered Dose 4 mls @ as directed .ROUTE .STK-MED ONE Stop: 07/19/18 06:29 Lidocaine HCl (Xylocaine-Mpf 1%) Confirm Administered Dose 4 mls @ as directed .ROUTE .STK-MED ONE Stop: 07/19/18 06:30 Midazolam HCl (Versed 1 Mg/Ml) Confirm Administered Dose 2 mg .ROUTE .STK-MED ONE Stop: 07/19/18 06:30 Ondansetron HCl (Zofran) Confirm Administered Dose 4 mg .ROUTE .STK-MED ONE Stop: 07/19/18 06:31 Propofol (Diprivan 20 Ml) Confirm Administered Dose 400 mg .ROUTE .STK-MED ONE Stop: 07/19/18 06:30 Rocuronium [place] (Zemuron) Confirm Administered Dose 50 mg .ROUTE .STK-MED ONE Stop: 07/19/18 06:31 Ropivacaine (Naropin 0.5%) Confirm Administered Dose 30 ml .ROUTE .[facility] Stop: 07/19/18 06:27
[2018-07-19] MEDS ORDERED: Sodium Chloride 0.9% 10 ML Syringe FLUSH PRN (07:00)
[2018-07-19] MEDS ORDERED: Lactated Ringers 1,000 ML IV SCH (07:00)
[2018-07-19] MEDS ORDERED: Lidocaine 1%/Sod Bicarbonate in NS 8.4% 1 ML Syringe IDERM PRN (07:00)
[2018-07-19] MEDS ORDERED: EPINEPHrine 1 MG/ML 30 ML MDV ONE ×2 (07:00→08:00)
[2018-07-19] MEDS ORDERED: Bupivacaine 0.25% 30 ML SDV ONE ×2 (07:24→07:27)
[2018-07-19] MEDS ORDERED: Phenylephrine/Normal Saline 100 MCG/ML 10 ML Syringe ONE (08:10)
[2018-07-19] MEDS ORDERED: HYDROmorphone 0.5 MG/0.5 ML Syringe IVPUSH PRN (08:37)
[2018-07-19] MEDS ORDERED: fentaNYL 100 MCG/2 ML SDV IVPUSH PRN (08:37)
[2018-07-19] MEDS ORDERED: Ondansetron 4 MG/2 ML SDV IVPUSH PRN (08:37)
[2018-07-19] MEDS ORDERED: Neostigmine Methylsulfate 1 MG/ML 5 ML Syringe ONE (08:43)
--- NOTE | 2018-07-19 09:16 | PCM.POSTAN ---
POST ANESTHESIA ASSESSMENT - MENTAL STATUS Mental Status: Alert, Oriented - VITAL SIGNS Pulse Rate: 110 SaO2: 100 Resp Rate: 16 Blood Pressure: 120/75 Temperature: 97.6 F - RESPIRATORY Respiratory Status: Respiratory Rate WNL, Airway Patent, O2 Saturation Stable, Supplemental Oxygen - CARDIOVASCULAR CV Status: Pulse Rate WNL, Blood Pressure Stable - GASTROINTESTINAL GI Status: No Symptoms - PAIN Pain Score: 0 - POST OP HYDRATION Hydration Status: Adequate & Stable
--- NOTE | 2018-07-19 09:28 | PCM.SN ---
- Free Text/Narrative Note: 07/19/2018 [id number] Time out performed. Requested to place left interscale block with ultrasound guidance and nerve stimulator for post op pain control per Dr. Stahl and patient. Preop diagnosis left shoulder pain. Procedure is left shoulder arthrosocopy. Informed consent obtained. Monitors and O2 placed at 2 l per n/c. Versed 1 mg and Fentanyl 50 mcg given IV total. Patient awake and talking during procedure. Left neck and clavicle area prepped with chlorprep times 2. Sterile gloves, hat and mask worn. US probe with sterile sleeve placed midclavicular with ID of brachial plexus and subclavian artery. Brachial plexus followed cephalad to level of cricoid. Lidocaine 1% local anesthetic injected prior to block placement. 22 g 2 inch stimplex needle advanced with US guidance to brachial plexus. Positive forearm response at .3mA with nerve stimulator. Ceased with saline injection. Ropivacaine 0.5% with epi 1:200,000 injected in increments of 5 ml with negative aspiration before each injection to a total of 30 ml. Good spread of local anesthetic seen on US. Patient tolerated procedure well. Vitals stable with no complaints.
--- NOTE | 2018-07-19 10:42 | PCM48HPAN ---
Post Anesthesia Note - EVALUATION WITHIN 48HRS OF ANESTHETIC Vital Signs in Normal Range: Yes Patient Participated in Evaluation: Yes Respiratory Function Stable: Yes Airway Patent: Yes Cardiovascular Function Stable: Yes Hydration Status Stable: Yes Pain Control Satisfactory: Yes Nausea and Vomiting Control Satisfactory: Yes Mental Status Recovered: Yes (complains of dry throat. No shoulder pain.) SaO2: 93 Resp Rate: 18
[2018-07-19 11:02] VITALS: BP 121/70
--- NOTE | 2018-07-22 08:35 | PCM.OPNOTE ---
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
--- NOTE | 2018-07-22 10:36 | OR ---
DATE OF OPERATION: 07/19/2018 SURGEON: Valentin Stahl MD OPERATION PERFORMED: Left shoulder video arthroscopy with extensive debridement. PREOPERATIVE DIAGNOSIS: Left shoulder rotator cuff tear. 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 ANESTHESIA: General endotracheal intubation with regional interscalene block. ANESTHESIA PROVIDER: Ashwin Barry CRNA. BELL SPINNER SOUSAPHONES: Katie Beasley LPN. ESTIMATED BLOOD LOSS: Less than 5 mL. COMPLICATIONS: None. CONDITION: Stable. DESCRIPTION OF PROCEDURE: The patient was identified in the preoperative holding area. Proper site was marked and identified by the surgeon. The patient was taken back to the operating theater, where after adequate anesthesia, the patient was placed in a lazy right lateral decubitus position. Wedge was placed posteriorly. The patient was secured to the table. All bony prominences were well padded. Left upper extremity was then sterilely prepped and draped in the usual sterile fashion. OR time-out was performed. The patient received 2 g of IV Ancef. A 10 pounds of traction was applied to the left upper extremity. At this time, posterior incision was made. Scope trocar was introduced to the glenohumeral joint. With the use of a spinal needle, anterior portal was then also created. 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 At this time, I did debride significant synovitis as well as any loose cartilage pieces. At this time, it was decided that we would not do a rotator cuff repair as the patient is in need of a reverse total shoulder arthroplasty. Excess saline was drained from the shoulder. A 3-0 nylon suture was used for closure of skin. The patient was placed in a sling and sent to the PACU in stable condition. MMODAL /[id number]
== END 2018-07-19 11:25 | disposition home or self-care (01) ==
LOC: JD.SDS 06:18
PROVIDERS: ATTEND Orthopaedic Surgery
DX: M75.102 Unspecified rotator cuff tear or rupture of left shoulder, not specified as traumatic (principal); M94.212 Chondromalacia, left shoulder; I10 Essential (primary) hypertension; M32.9 Systemic lupus erythematosus, unspecified; D69.6 Thrombocytopenia, unspecified; Z79.82 Long term (current) use of aspirin; Z79.899 Other long term (current) drug therapy; Z88.0 Allergy status to penicillin; Z88.2 Allergy status to sulfonamides; Z88.8 Allergy status to other drugs, medicaments and biological substances
CPT/HCPCS: 29823; 29827; 64415; J0171; J0690; J2001; J2250; J2370; J2405; J2704; J2710; J2795; J3010; J7120; 01630; J3490

== ENCOUNTER 2018-08-30 06:14 | Inpatient (IN) | payer MEDICARE, OTHER ==
[~2018-08-30 06:14] MED LIST changes: +Acetaminophen 325 MG Tab PO ONE; -EPINEPHrine 1 MG/ML 30 ML MDV ONE; +Lactated Ringers 1,000 ML IV SCH; +Lidocaine 1%/Sod Bicarbonate in NS 8.4% 1 ML Syringe IDERM PRN; +Pregabalin 25 MG Cap PO ONE; +Sodium Chloride 0.9% 10 ML Syringe FLUSH PRN; +oxyCODONE ER 10 MG TAB.ER PO ONE
[2018-08-30] MEDS ORDERED: Cyclobenzaprine 10 MG Tab PO PRN (06:53)
[2018-08-30] MEDS ORDERED: Bisacodyl 5 MG Tab PO PRN (06:54)
[2018-08-30] MEDS ORDERED: Iodine/Sodium Iodide 2% Tincture 30 ML Bottle ONE (06:54)
[2018-08-30] MEDS ORDERED: Naloxone 0.4 MG/ML SDV IVPUSH PRN (06:54)
[2018-08-30] MEDS ORDERED: Vancomycin 1 GM SDV ONE (06:54)
[2018-08-30] MEDS ORDERED: Morphine 2 MG/ML Syringe IVPUSH PRN (06:54)
[2018-08-30] MEDS ORDERED: Sennosides 8.6 MG Tab PO PRN (06:54)
[2018-08-30] MEDS ORDERED: ceFAZolin 1 GM Vial ONE (06:54)
[2018-08-30] MEDS ORDERED: Ondansetron 4 MG/2 ML SDV IVPUSH PRN ×2 (06:54→07:39)
--- NOTE | 2018-08-30 07:20 | PCM.CONS ---
H&P History of Present Illness - General Date of Service: 08/30/18 Admit Problem/Dx: Admission Diagnosis/Problem Admission Diagnosis/Problem Osteoarthritis of shoulder Source of Information: Patient, Old Records, Provider, RN, RN Notes Reviewed History Limitations: Reports: No Limitations - History of Present Illness Initial Comments - Free Text/Narative: Olamide Morales is a 78 yo female patient of Dr. Stahl who is post-operative day 0 of reverse total shoulder arthroplasty. Hospital medicine was consulted for post-operative medical care. At this time she is resting comfortably in bed. Pain is controlled. She denies any chest pain, shortness of breath, palpitations , nausea, or vomiting. She carries a history of: Pancytopenia, Discord Lupus, Raynauds disease, chronic lower back pain, microhematuria, osteopenia, HTN, thrombocytopenia. She was never a smoker. She is a full code. Her primary care provider is Dr. Corona. Left Shoulder Pain Score (Numeric/FACES): 0 - Related Data Allergies/Adverse Reactions: Allergies Allergy/AdvReac Type Severity Reaction Status Date / Time JANELL Inhibitors Allergy Cannot Verified 07/16/18 12:55 Remember amoxicillin Allergy Cannot Verified 07/16/18 12:55 Remember Sulfa (Sulfonamide Allergy Cannot Verified 07/16/18 12:55 Antibiotics) Remember Home Medications: Home Meds Gabapentin [Neurontin] 300 mg PO TID 03/27/16 [History] Hydroxychloroquine [Plaquenil] 400 mg PO Q48H 03/27/16 [History] Losartan/Hydrochlorothiazide [Losartan-HCTZ 50-12.5 MG] 1 tab PO BID 03/27/16 [ History] Aspirin [Halfprin] 81 mg PO DAILY 12/26/16 [History] Betamethasone Valerate 1 applic TP ASDIRECTED PRN 12/26/16 [History] Biotin 5,000 mcg PO DAILY 12/26/16 [History] Cranberry 400 mg PO BID 12/26/16 [History] FA/Lycopene/Lut/MV,Ca,Iron,Min [Centrum] 1 tab PO DAILY 12/26/16 [History] Lysine 500 mg PO DAILY 12/26/16 [History] Acetaminophen [Tylenol] 650 mg PO Q4H PRN 07/16/18 [History] Diclofenac Sodium [Voltaren 1% Gel] 1 dose TOP BID PRN 07/16/18 [History] Hydroxychloroquine [Plaquenil] 200 mg PO Q48H 07/16/18 [History] azaTHIOprine [Imuran] 50 mg PO BID 07/16/18 [History] dilTIAZem HCl [Diltiazem 24Hr ER] 300 mg PO DAILY 07/16/18 [History] Past Medical History HEENT History: Reports: Impaired Vision, Macular Degeneration, Other (See Below) Other HEENT History: has glasses, dentures Cardiovascular History: Reports: Hypertension Other Cardiovascular History: Dependent edema Respiratory History: Reports: None Gastrointestinal History: Reports: Colon Polyp Genitourinary History: Reports: None 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 Musculoskeletal History: Reports: Osteoarthritis, Other (See Below) Other Musculoskeletal History: left shoulder pain Neurological History: Reports: None Other Neuro History: Mild kyphosis Psychiatric History: Reports: None Endocrine/Metabolic History: Reports: Osteopenia Other Endocrine/Metabolic History: Lupus Hematologic History: Reports: Other (See Below) Other Hematologic History: thrombocytopenia, pancytopenia Immunologic History: Reports: SLE Other Immunologic History: Lupus Oncologic (Cancer) History: Reports: None Dermatologic History: Reports: None Other Dermatologic History: Dry skin - Infectious Disease History Infectious Disease History: Reports: Shingles - Past Surgical History Cardiovascular Surgical History: Reports: None Respiratory Surgical History: Reports: None GI Surgical History: Reports: Colonoscopy Female Surgical History: Reports: D&C Male Surgical History: Reports: None Endocrine Surgical History: Reports: None Neurological Surgical History: Reports: None Musculoskeletal Surgical History: Reports: Carpal Tunnel, Knee Replacement Oncologic Surgical History: Reports: Bone Marrow Aspiration, Other (See Below) Other Oncologic Surgeries/Procedures: lymph node biopsy Dermatological Surgical History: Reports: None Social & Family History - Family History Family Medical History: Noncontributory - Tobacco Use Smoking Status *Q: Never Smoker Second Hand Smoke Exposure: No - Caffeine Use Caffeine Use: Reports: Coffee Caffeine Use Comment: for breakfast - Recreational Drug Use Recreational Drug Use: No H&P Review of Systems - Review of Systems: Review Of Systems: See Below General: Reports: No Symptoms. Denies: Fever, Chills, Malaise, Fatigue HEENT: Reports: No Symptoms. Denies: Headaches, Sore Throat Pulmonary: Reports: No Symptoms. Denies: Shortness of Breath, Wheezing, Pleuritic Chest Pain, Cough, Sputum Cardiovascular: Reports: No Symptoms. Denies: Chest Pain, Palpitations, Dyspnea on Exertion, Edema Gastrointestinal: Reports: No Symptoms. Denies: Abdominal Pain, Constipation, Diarrhea, Nausea, Vomiting Genitourinary: Reports: No Symptoms. Denies: Pain Musculoskeletal: Reports: Shoulder Pain Skin: Reports: No Symptoms. Denies: Cyanosis Psychiatric: Reports: No Symptoms. Denies: Confusion Neurological: Reports: No Symptoms Hematologic/Lymphatic: Reports: No Symptoms Immunologic: Reports: No Symptoms Exam - Exam Exam: See Below - Vital Signs Vital Signs: Last Vital Signs Temp 97.9 F 08/30/18 06:30 Pulse 91 08/30/18 06:30 Resp 16 08/30/18 06:30 BP 146/79 H 08/30/18 06:30 Pulse Ox 99 08/30/18 06:30 Weight: 130 lb - Exam Quality Assessment: DVT Prophylaxis General: Alert, Oriented, Cooperative. No: Mild Distress HEENT: Conjunctiva Clear, EACs Clear, EOMI, Hearing Intact, Mucosa Moist & [place] , Normal Nasal Septum, PERRLA Neck: Supple, Trachea Midline Lungs: Clear to Auscultation, Normal Respiratory Effort Cardiovascular: Regular Rate, Regular Rhythm GI/Abdominal Exam: Normal Bowel Sounds, Soft, Non-Tender, No Organomegaly, No Distention (Female) Exam: Deferred Rectal (Female) Exam: Deferred Back Exam: Normal Inspection, Full Range of Motion Extremities: No Pedal Edema, Normal Capillary Refill, Arm Pain, Limited Range of Motion, Other (Bandage in place on left shoulder. Bandage is dry and intact. Cooling pack in place. ) Peripheral Pulses: 2+: Radial (L), Radial (R), Dorsalis Pedis (L), Dorsalis Pedis (R) Skin: Warm, Dry, Intact Neurological: Cranial Nerves Intact (grossly ) Neuro Extensive - Mental Status: Alert, Oriented x3, Normal Mood/Affect, Normal Cognition Consult PN Assessment/Plan POD#: 0 Procedures: Procedures ARTHROSCOP ROTATOR CUFF REPR (07/19/18) BONE IMAGING 3 PHASE (10/06/16) COMPLETE CBC W/AUTO DIFF WBC (12/29/16) COMPREHEN METABOLIC PANEL (12/29/16) DRAIN/INJ JOINT/BURSA W/O US (12/13/16) DXA BONE DENSITY AXIAL (11/05/16) EMERGENCY DEPT VISIT (03/27/16) EMERGENCY DEPT VISIT (11/08/14) GAIT TRAINING THERAPY (12/29/16) MEASURE BLOOD OXYGEN LEVEL (12/29/16) MR-STAPH DNA AMP PROBE (07/07/18) MRI JOINT UPR EXTREM W/O DYE (05/20/18) N BLOCK INJ BRACHIAL PLEXUS (07/19/18) OT EVAL LOW COMPLEX 30 MIN (12/29/16) PT EVAL MOD COMPLEX 30 MIN (12/29/16) ROUTINE VENIPUNCTURE (12/29/16) SELF CARE MNGMENT TRAINING (12/29/16) SHOULDER ARTHROSCOPY/SURGERY (07/19/18) THERAPEUTIC ACTIVITIES (12/29/16) THERAPEUTIC EXERCISES (12/29/16) X-RAY EXAM OF ANKLE (11/08/14) X-RAY EXAM OF KNEE 1 OR 2 (12/29/16) X-RAY EXAM OF LOWER LEG (11/08/14) X-RAY EXAM OF WRIST (03/27/16) (1) S/p reverse total shoulder arthroplasty SNOMED Code(s): 599181523, 534197912 Code(s): Z96.619 - PRESENCE OF UNSPECIFIED ARTIFICIAL SHOULDER JOINT Priority: High Current Visit: Yes Qualifiers: Laterality: left Qualified Code(s): Z96.612 - Presence of left artificial shoulder joint (2) Raynauds disease SNOMED Code(s): 999136036 Code(s): I73.00 - RAYNAUD'S SYNDROME WITHOUT GANGRENE Priority: Low Current Visit: No Qualifiers: Raynaud?s-associated gangrene presence: without gangrene Qualified Code(s) : I73.00 - Raynaud's syndrome without gangrene (3) Chronic lower back pain SNOMED Code(s): 545870943 Code(s): M54.5 - LOW BACK PAIN; G89.29 - OTHER CHRONIC PAIN Priority: Low Current Visit: No Qualifiers: Back pain laterality: unspecified Sciatica presence: unspecified whether sciatica present Qualified Code(s): M54.5 - Low back pain; G89.29 - Other chronic pain (4) HTN (hypertension) SNOMED Code(s): 27018551 Code(s): I10 - ESSENTIAL (PRIMARY) HYPERTENSION Priority: Low Current Visit: No Qualifiers: Hypertension type: essential hypertension Qualified Code(s): I10 - Essential (primary) hypertension (5) Lupus SNOMED Code(s): 74717136 Code(s): M32.9 - SYSTEMIC LUPUS ERYTHEMATOSUS, UNSPECIFIED Priority: Medium Current Visit: No Qualifiers: Systemic lupus erythematosus type: unspecified Systemic lupus erythematosus organ involvement: unspecified Qualified Code(s): M32.9 - Systemic lupus erythematosus, unspecified (6) Macular degeneration SNOMED Code(s): 765799197 Code(s): H35.30 - UNSPECIFIED MACULAR DEGENERATION Priority: Medium Current Visit: No (7) Osteoarthritis SNOMED Code(s): 515307144 Code(s): M19.90 - UNSPECIFIED OSTEOARTHRITIS, UNSPECIFIED SITE Priority: High Current Visit: Yes Qualifiers: Osteoarthritis location: shoulder Osteoarthritis type: primary Laterality : left Qualified Code(s): M19.012 - Primary osteoarthritis, left shoulder (8) Osteopenia SNOMED Code(s): 438249006 Code(s): M85.80 - OTH DISRD OF BONE DENSITY AND STRUCTURE, UNSPECIFIED SITE Priority: Medium Current Visit: No Qualifiers: Osteopenia location: unspecified Qualified Code(s): M85.80 - Other specified disorders of bone density and structure, unspecified site (9) Pancytopenia SNOMED Code(s): 989381864 Code(s): D61.818 - OTHER PANCYTOPENIA Priority: Medium Current Visit: No Problem List Initiated/Reviewed/Updated: Yes Plan: I/P: Acute: S/P left reverse total shoulder arthroplasty - post-operative day 0 -DVT prophylaxis and pain management per primary care team -PT/OT -IS/RT -Monitor oxygen saturation -Titrate oxygen as needed -Vital signs stable -Monitor labs -Pre-operative Hgb was 13.9 -Pre-operative GFR was >90 -Pre-operative BUN was 16 -Pre-operative creatinine was 0.5 -Pre-operative platelet count was 150 -Pre-operative sodium of 134 Osteoarthritis of left shoulder -Pain management per primary care team Chronic: Pancytopenia Discord lupus Raynauds Chronic lower back pain microhematuria osteopenia HTN Thrombocytopenia Plan: CM for discharge planning GI prophylaxis Home medications as indicated Other orders as listed above Routine AM labs She is a full code. Her PCP is Dr. Corona Thank you for allowing us to participate in the care of this patient!! Requesting Provider: Dr. Stahl Date Consult Requested: 08/30/18 Reason for Consult: Post-opeartive medical management Patient History Reviewed: Yes Admission H&P Reviewed: Yes Time Spent (in minutes): 40
[2018-08-30] MEDS ORDERED: fentaNYL 250 MCG/5 ML SDV ONE (07:27)
[2018-08-30] MEDS ORDERED: Midazolam 1 MG/ML 2 ML SDV ONE (07:27)
[2018-08-30] MEDS ORDERED: Ropivacaine 0.5% 5 MG/ML 30 ML SDV ONE (07:33)
[2018-08-30] MEDS ORDERED: Lidocaine 1% 4 ML ONE ×2 (07:33→07:44)
[2018-08-30] MEDS ORDERED: EPINEPHrine 1 MG/ML SDV ONE (07:33)
--- NOTE | 2018-08-30 07:38 | PCM.PREANE ---
Preanesthetic Assessment - Procedure Proposed Procedure: Left Shoulder Reverse Total Arthroplasty - Anesthesia/Transfusion/Family Hx Anesthesia History: Prior Anesthesia Without Reaction Family History of Anesthesia Reaction: No Transfusion History: No Prior Transfusion(s) - Review of Systems General: No Symptoms Pulmonary: No Symptoms Cardiovascular: No Symptoms Gastrointestinal: No Symptoms Neurological: No Symptoms Other: Reports: None - Physical Assessment NPO Status Date: 08/29/18 NPO Status Time: 20:30 O2 Sat by Pulse Oximetry: 99 Respiratory Rate: 16 Vital Signs: Last Vital Signs Temp 36.6 C 08/30/18 06:30 Pulse 91 08/30/18 06:30 Resp 16 08/30/18 06:30 BP 146/79 H 08/30/18 06:30 Pulse Ox 99 08/30/18 06:30 Height: 1.6 m Weight: 58.967 kg ASA Class: 2 Mental Status: Alert & Oriented x3 Airway Class: Mallampati = 1 Dentition: Reports: Dentures (upper), Partial (lower ) Thyro-Mental Finger Breadths: 3 Mouth Opening Finger Breadths: 4 ROM/Head Extension: Full Lungs: Clear to Auscultation, Normal Respiratory Effort Cardiovascular: Regular Rate, Regular Rhythm - Lab Values: Laboratory Last Values MRSA (PCR) Negative 08/16/18 09:37 - Allergies Allergies/Adverse Reactions: Allergies Allergy/AdvReac Type Severity Reaction Status Date / Time JANELL Inhibitors Allergy Cannot Verified 07/16/18 12:55 Remember amoxicillin Allergy Cannot Verified 07/16/18 12:55 Remember Sulfa (Sulfonamide Allergy Cannot Verified 07/16/18 12:55 Antibiotics) Remember - Blood Blood Available: No - Acknowledgements Anesthesia Type Planned: General Anesthesia, Regional Block Pt an Appropriate Candidate for the Planned Anesthesia: Yes Alternatives and Risks of Anesthesia Discussed w Pt/Guardian: Yes Pt/Guardian Understands and Agrees with Anesthesia Plan: Yes PreAnesthesia Questionnaire HEENT History: Reports: Impaired Vision, Macular Degeneration, Other (See Below) Other HEENT History: has glasses, dentures Cardiovascular History: Reports: Hypertension Other Cardiovascular History: Dependent edema Respiratory History: Reports: None Gastrointestinal History: Reports: Colon Polyp Genitourinary History: Reports: None CHILD SUPPORT SPECIALIST History: Reports: None Musculoskeletal History: Reports: Osteoarthritis, Other (See Below) Other Musculoskeletal History: left shoulder pain Neurological History: Reports: None Other Neuro History: Mild kyphosis Psychiatric History: Reports: None Endocrine/Metabolic History: Reports: Osteopenia Other Endocrine/Metabolic History: Lupus Hematologic History: Reports: Other (See Below) Other Hematologic History: thrombocytopenia, pancytopenia Immunologic History: Reports: SLE Other Immunologic History: Lupus Oncologic (Cancer) History: Reports: None Dermatologic History: Reports: None Other Dermatologic History: Dry skin - Infectious Disease History Infectious Disease History: Reports: Shingles - Past Surgical History Cardiovascular Surgical History: Reports: None Respiratory Surgical History: Reports: None GI Surgical History: Reports: Colonoscopy Female Surgical History: Reports: D&C Male Surgical History: Reports: None Endocrine Surgical History: Reports: None Neurological Surgical History: Reports: None Musculoskeletal Surgical History: Reports: Carpal Tunnel, Knee Replacement Oncologic Surgical History: Reports: Bone Marrow Aspiration, Other (See Below) Other Oncologic Surgeries/Procedures: lymph node biopsy Dermatological Surgical History: Reports: None - SUBSTANCE USE Smoking Status *Q: Never Smoker Second Hand Smoke Exposure: No Recreational Drug Use History: No - HOME MEDS Home Medications: Home Meds Gabapentin [Neurontin] 300 mg PO TID 03/27/16 [History] Hydroxychloroquine [Plaquenil] 400 mg PO Q48H 03/27/16 [History] Losartan/Hydrochlorothiazide [Losartan-HCTZ 50-12.5 MG] 1 tab PO BID 03/27/16 [ History] Aspirin [Halfprin] 81 mg PO DAILY 12/26/16 [History] Betamethasone Valerate 1 applic TP ASDIRECTED PRN 12/26/16 [History] Biotin 5,000 mcg PO DAILY 12/26/16 [History] Cranberry 400 mg PO BID 12/26/16 [History] FA/Lycopene/Lut/MV,Ca,Iron,Min [Centrum] 1 tab PO DAILY 12/26/16 [History] Lysine 500 mg PO DAILY 12/26/16 [History] Acetaminophen [Tylenol] 650 mg PO Q4H PRN 07/16/18 [History] Diclofenac Sodium [Voltaren 1% Gel] 1 dose TOP BID PRN 07/16/18 [History] Hydroxychloroquine [Plaquenil] 200 mg PO Q48H 07/16/18 [History] azaTHIOprine [Imuran] 50 mg PO BID 07/16/18 [History] dilTIAZem HCl [Diltiazem 24Hr ER] 300 mg PO DAILY 07/16/18 [History] - CURRENT (IN HOUSE) MEDS Current Meds: Current Medications Hydrocodone Bitart/Acetaminophen ([place] 325-5 Mg) 1 - 2 tab PO Q4H PRN PRN Reason: Pain Aspirin (Ecotrin) 325 mg PO DAILY ISAI Bisacodyl (Dulcolax) 5 mg PO DAILY PRN PRN Reason: Constipation Cyclobenzaprine HCl (Flexeril) 5 mg PO BID PRN PRN Reason: Spasms Famotidine (Pepcid) 20 mg PO Q12H [facility] Lactated Ringer's (Ringers, Lactated) 1,000 mls @ 125 mls/hr IV ASDIRECTED [facility] Last Admin: 08/30/18 06:50 Dose: 125 mls/hr Cefazolin Sodium/Dextrose 2 gm (/ Premix) 50 mls @ 100 mls/hr IV Q8H [facility] Stop: 08/31/18 07:29 Ketorolac Tromethamine (Toradol) 15 mg IVPUSH Q6H PRN PRN Reason: Pain Lidocaine/Sodium Bicarbonate (Buffered Lidocaine 1% In Ns 8.4%) 0.25 ml IDERM ONETIME PRN PRN Reason: Prior to IV Start Last Admin: 08/30/18 06:50 Dose: 0.25 ml Magnesium Hydroxide (Milk Of Magnesia) 30 ml PO BID PRN PRN Reason: Constipation Morphine Sulfate (Morphine) 2 mg IVPUSH Q2H PRN PRN Reason: Breakthrough Pain Naloxone HCl (Narcan) 0.1 mg IVPUSH Q5M PRN PRN Reason: Oversedation Ondansetron HCl (Zofran) 4 mg IVPUSH Q6H PRN PRN Reason: Nausea/Vomiting Senna (Senna) 8.6 mg PO BID PRN PRN Reason: Constipation Sodium Chloride (Saline Flush) 10 ml FLUSH ASDIRECTED PRN PRN Reason: Keep Vein Open Discontinued Medications Acetaminophen (Tylenol) 975 mg PO ONETIME ONE Stop: 08/30/18 06:01 Last Admin: 08/30/18 06:44 Dose: 975 mg Cefazolin Sodium (Ancef) Confirm Administered Dose 2 gm .ROUTE .STK-MED ONE Stop: 08/30/18 06:55 Fentanyl (Sublimaze) Confirm Administered Dose 250 mcg .ROUTE .STK-MED ONE Stop: 08/30/18 07:28 Iodine (Iodine 2% Mild Tincture) Confirm Administered Dose 30 ml .ROUTE .STK- MED ONE Stop: 08/30/18 06:55 Midazolam HCl (Versed 1 Mg/Ml) Confirm Administered Dose 2 mg .ROUTE .STK-MED ONE Stop: 08/30/18 07:28 Oxycodone HCl (Oxycontin) 10 mg PO ONETIME ONE Stop: 08/30/18 06:01 Last Admin: 08/30/18 06:43 Dose: 10 mg Pregabalin (Lyrica) 50 mg PO ONETIME ONE Stop: 08/30/18 06:01 Last Admin: 08/30/18 06:43 Dose: 50 mg Tranexamic Acid (Cyklokapron) Confirm Administered Dose 1,000 mg .ROUTE .STK- MED ONE Stop: 08/30/18 06:54 Tranexamic Acid (Cyklokapron) Confirm Administered Dose 1,000 mg .ROUTE .ST- MED ONE Stop: 08/30/18 07:17 Tranexamic Acid (Cyklokapron) Confirm Administered Dose 1,000 mg .ROUTE .STK- MED ONE Stop: 08/30/18 07:20 Vancomycin HCl (Vancomycin) Confirm Administered Dose 1 gm .ROUTE .STK-MED ONE Stop: 08/30/18 06:55
[2018-08-30] MEDS ORDERED: diphenhydrAMINE 50 MG/ML SDV IVPUSH PRN (07:39)
[2018-08-30] MEDS ORDERED: fentaNYL 100 MCG/2 ML SDV IVPUSH PRN (07:39)
[2018-08-30] MEDS ORDERED: Propofol 200 MG/20 ML SDV ONE (07:43)
[2018-08-30] MEDS ORDERED: Dexamethasone 4 MG/ML SDV ONE (07:44)
[2018-08-30] MEDS ORDERED: Phenylephrine/Normal Saline 100 MCG/ML 10 ML Syringe ONE ×2 (08:33→09:26)
--- NOTE | 2018-08-30 09:01 | PCM.SN ---
- Free Text/Narrative Note: Anesthesia Note: (Left Interscalene Block Note) Date: 08/30/2018 Time Out: 740 Start: 740 Stop: 805 Surgical Procedure: Left Reverse Total Shoulder Arthroplasty Diagnosis Left shoulder osteoarthritis Current Procedure: Left interscalene block under US guidance for postoperative pain control requested by Dr. Stahl. Patient chart reviewed, risk/benefits discussed with patient, consent obtained. Patient positioned supine, monitors/alarms on, oxygen placed via nasal cannula at 2 LPM. IV sedation administered: Fentanyl 50mcg IV given pre-procedure. Left shoulder prepped with two chloropreps. Sterile drapes placed with aseptic technique noted. Under US guidance, left subclavian artery visualized along with the left brachial plexus. Plexus followed up to C6 cricoid level, and area localized with 2mls of 1% lidocaine. 22gauge 2 inch stimiplex needle advanced under US with 0.6mV with stimulation of biceps noted. Good stimulation noted with decreased voltage and absent at 0.2mVs. 1ml of Normal Saline injected with loss of stimulation noted to confirm needle not placed intraneurally. Incremental dosing of 5mls with negative aspiration noted prior to each injection of 0.5% ropivacaine with 1:200,000 epinephrine. Total volume=30mls. Please refer to nurses noted for vital signs. Tamie Nick CRNA
[2018-08-30] MEDS ORDERED: ePHEDrine/Normal Saline 25 MG/5 ML Syringe ONE (09:08)
[2018-08-30] MEDS ORDERED: Lactated Ringers 1,000 ML ONE (09:31)
[2018-08-30] MEDS ORDERED: Neostigmine Methylsulfate 1 MG/ML 5 ML Syringe ONE (09:32)
[2018-08-30] MEDS ORDERED: Glycopyrrolate 0.2 MG/ML SDV ONE (09:32)
--- NOTE | 2018-08-30 10:22 | PCM.POSTAN ---
POST ANESTHESIA ASSESSMENT - MENTAL STATUS Mental Status: Alert - VITAL SIGNS Pulse Rate: 73 SaO2: 98 Resp Rate: 12 Blood Pressure: 104/65 Temperature: 36.6 C - RESPIRATORY Respiratory Status: Respiratory Rate WNL, Airway Patent, O2 Saturation Stable - CARDIOVASCULAR CV Status: Pulse Rate WNL, Blood Pressure Stable - GASTROINTESTINAL GI Status: No Symptoms - PAIN Pain Score: 0 - POST OP HYDRATION Hydration Status: Adequate & Stable
--- NOTE | 2018-08-30 11:53 | CR ---
Left shoulder: Single AP view of the left shoulder was obtained. Comparison: Previous MRI left shoulder study of 05/20/18. Left shoulder prosthesis is seen. Components are aligned. Underlying bony structures are intact. Impression: 1. Satisfactory appearance of recently placed left shoulder prosthesis. Diagnostic code #2
--- NOTE | 2018-08-30 11:53 | CR ---
Left shoulder: Two fluoroscopic spot views were obtained of the left shoulder. Study obtained utilizing C-arm device. Study is a procedural exam showing placement of reverse left shoulder prosthesis. No gross bony abnormality is appreciated. Fluoroscopy time is given as 1.7 seconds. Impression: 1. Reverse left shoulder prosthesis. Diagnostic code #1
[2018-08-30] MEDS ORDERED: BETAMETHASONE VALERATE 0.1% TOP PRN (12:52)
[2018-08-30] MEDS ORDERED: Diclofenac Sodium [Voltaren 1% Gel] TOP PRN (12:52)
[2018-08-30] MEDS ORDERED: ceFAZolin/Dextrose,Iso-Osmotic 2 GM/50 ML Duplex Bag IV ONE (14:48)
[2018-08-30] MEDS: Gabapentin 300 MG Cap PO SCH ×2 (14:53→20:50)
[2018-08-30] MEDS: Hydrochlorothiazide 12.5 MG Cap PO SCH (14:53)
[2018-08-30] MEDS: ceFAZolin 2 GM in Premix Bag 1 BAG IV SCH ×2 (14:54→22:52)
[2018-08-30] MEDS: Losartan 25 MG Tab PO SCH (14:54)
[2018-08-30] MEDS: Famotidine 20 MG Tab PO SCH (20:50)
[2018-08-30] MEDS: Ketorolac 15 MG/ML SDV IVPUSH PRN (20:52)
[2018-08-30] MEDS ORDERED: Magnesium Hydroxide 400 MG/5 ML Susp 30 ML Cup PO PRN (21:00)
[2018-08-31] MEDS: Ketorolac 15 MG/ML SDV IVPUSH PRN (03:05)
[2018-08-31] MEDS: Hydrochlorothiazide 12.5 MG Cap PO SCH (06:00)
[2018-08-31] MEDS: Losartan 25 MG Tab PO SCH (06:01)
[2018-08-31] MEDS: Acetaminophen/HYDROcodone 325-5 MG Tab PO PRN ×2 (06:02→11:24)
[2018-08-31 06:05] VITALS: BP 104/57
[2018-08-31] MEDS: ceFAZolin 2 GM in Premix Bag 1 BAG IV SCH (06:50)
--- NOTE | 2018-08-31 07:00 | PCM.CONSN ---
- General Info Date of Service: 08/31/18 Admission Dx/Problem (Free Text): Admission Diagnosis/Problem Admission Diagnosis/Problem Osteoarthritis of shoulder Subjective Update: In to see Olamide. She is just finishing up with OT. She is doing well and has no concerns. No nursing concerns. Functional Status: Reports: Pain Controlled, Tolerating Diet, Ambulating, Urinating, Incentive Spirometry. Denies: New Symptoms - Review of Systems General: Reports: No Symptoms. Denies: Fever, Weakness, Fatigue, Malaise, Chills HEENT: Reports: No Symptoms. Denies: Headaches, Sore Throat Pulmonary: Reports: No Symptoms. Denies: Shortness of Breath, Pleuritic Chest Pain, Cough, Sputum, Wheezing Cardiovascular: Reports: No Symptoms. Denies: Chest Pain, Palpitations, Dyspnea on Exertion Gastrointestinal: Reports: No Symptoms. Denies: Abdominal Pain, Constipation, Diarrhea, Nausea, Vomiting Genitourinary: Reports: No Symptoms. Denies: Pain Musculoskeletal: Reports: Shoulder Pain Skin: Reports: No Symptoms. Denies: Cyanosis Neurological: Reports: No Symptoms. Denies: Confusion Psychiatric: Reports: No Symptoms - Patient Data Vitals - Most Recent: Last Vital Signs Temp 98.2 F 08/31/18 03:14 Pulse 94 08/31/18 03:14 Resp 14 08/31/18 03:14 BP 104/57 L 08/31/18 06:01 Pulse Ox 99 08/31/18 03:14 Weight - Most Recent: 130 lb I&O - Last 24 Hours: Intake & Output 08/30/18 08/30/18 08/31/18 14:59 22:59 06:59 Intake Total 180 180 Output Total 700 Balance -520 180 Med Orders - Current: Current Medications Hydrocodone Bitart/Acetaminophen ([place] 325-5 Mg) 1 - 2 tab PO Q4H PRN PRN Reason: Pain Last Admin: 08/31/18 06:02 Dose: 1 tab Aspirin (Ecotrin) 325 mg PO DAILY ISAI Bisacodyl (Dulcolax) 5 mg PO DAILY PRN PRN Reason: Constipation Cyclobenzaprine HCl (Flexeril) 5 mg PO BID PRN PRN Reason: Spasms Last Admin: 08/30/18 22:52 Dose: 5 mg Diltiazem HCl (Cardizem Cd) 300 mg PO DAILY ISAI Famotidine (Pepcid) 20 mg PO Q12H [facility] Last Admin: 08/30/18 20:50 Dose: 20 mg Gabapentin (Neurontin) 300 mg PO TID [facility] Last Admin: 08/30/18 20:50 Dose: 300 mg Hydrochlorothiazide (Hydrochlorothiazide) 12.5 mg PO BIDDIURETIC [facility] Last Admin: 08/31/18 06:00 Dose: 12.5 mg Hydroxychloroquine Sulfate (Plaquenil) 200 mg PO Q48H [facility] Hydroxychloroquine Sulfate (Plaquenil) 400 mg PO Q48H [facility] Lactated Ringer's (Ringers, Lactated) 1,000 mls @ 125 mls/hr IV ASDIRECTED [facility] Last Admin: 08/30/18 06:50 Dose: 125 mls/hr Cefazolin Sodium/Dextrose 2 gm (/ Premix) 50 mls @ 100 mls/hr IV Q8H [facility] Stop: 08/31/18 07:29 Last Admin: 08/31/18 06:50 Dose: 100 mls/hr Losartan Potassium (Cozaar) 50 mg PO BIDDIURETIC [facility] Last Admin: 08/31/18 06:01 Dose: 50 mg Magnesium Hydroxide (Milk Of Magnesia) 30 ml PO BID PRN PRN Reason: Constipation Morphine Sulfate (Morphine) 2 mg IVPUSH Q2H PRN PRN Reason: Breakthrough Pain Naloxone HCl (Narcan) 0.1 mg IVPUSH Q5M PRN PRN Reason: Oversedation Ondansetron HCl (Zofran) 4 mg IVPUSH Q6H PRN PRN Reason: Nausea/Vomiting Diclofenac Sodium [ (Voltaren 1% Gel]) 0 each TOP BID PRN PRN Reason: Pain Senna (Senna) 8.6 mg PO BID PRN PRN Reason: Constipation Sodium Chloride (Saline Flush) 10 ml FLUSH ASDIRECTED PRN PRN Reason: Keep Vein Open Discontinued Medications Acetaminophen (Tylenol) 975 mg PO ONETIME ONE Stop: 08/30/18 06:01 Last Admin: 08/30/18 06:44 Dose: 975 mg Betamethasone Valerate (Valisone 0.1% Lotion) ml TOP ASDIRECTED PRN PRN Reason: Pain Cefazolin Sodium (Ancef) Confirm Administered Dose 2 gm .ROUTE .STK-MED ONE Stop: 08/30/18 06:55 Last Admin: 08/30/18 09:31 Dose: 2 gm Cefazolin Sodium/Dextrose (Ancef) Confirm Administered Dose 2 gm IV .STK-MED ONE Stop: 08/30/18 14:49 Last Admin: 08/30/18 16:33 Dose: Not Given Dexamethasone (Dexamethasone) Confirm Administered Dose 4 mg .ROUTE .STK-MED ONE Stop: 08/30/18 07:45 Diphenhydramine HCl (Benadryl) 6.25 mg IVPUSH Q6H PRN PRN Reason: pruritis Stop: 08/30/18 10:30 Ephedrine Sulfate (Ephedrine In Ns) Confirm Administered Dose 25 mg .ROUTE .STK- MED ONE Stop: 08/30/18 09:09 Epinephrine HCl (Adrenalin) Confirm Administered Dose 1 mg .ROUTE .STK-MED ONE Stop: 08/30/18 07:34 Fentanyl (Sublimaze) Confirm Administered Dose 250 mcg .ROUTE .STK-MED ONE Stop: 08/30/18 07:28 Fentanyl (Sublimaze) 25 mcg IVPUSH Q5M PRN PRN Reason: Pain Stop: 08/30/18 10:30 Glycopyrrolate (Robinul) Confirm Administered Dose 0.2 mg .ROUTE .STK-MED ONE Stop: 08/30/18 09:33 Lidocaine HCl (Xylocaine-Mpf 1%) Confirm Administered Dose 4 mls @ as directed .ROUTE .STK-MED ONE Stop: 08/30/18 07:34 Lidocaine HCl (Xylocaine-Mpf 1%) Confirm Administered Dose 4 mls @ as directed .ROUTE .STK-MED ONE Stop: 08/30/18 07:45 Lactated Ringer's (Ringers, Lactated) Confirm Administered Dose 1,000 mls @ as directed .ROUTE .STK-MED ONE Stop: 08/30/18 09:32 Iodine (Iodine 2% Mild Tincture) Confirm Administered Dose 30 ml .ROUTE .STK- MED ONE Stop: 08/30/18 06:55 Last Admin: 08/30/18 09:28 Dose: 18 ml Ketorolac Tromethamine (Toradol) 15 mg IVPUSH Q6H PRN PRN Reason: Pain Last Admin: 08/31/18 03:05 Dose: 15 mg Lidocaine/Sodium Bicarbonate (Buffered Lidocaine 1% In Ns 8.4%) 0.25 ml IDERM ONETIME PRN PRN Reason: Prior to IV Start Last Admin: 08/30/18 06:50 Dose: 0.25 ml Midazolam HCl (Versed 1 Mg/Ml) Confirm Administered Dose 2 mg .ROUTE .STK-MED ONE Stop: 08/30/18 07:28 Neostigmine Methylsulfate (Neostigmine) Confirm Administered Dose 5 mg .ROUTE .STK-MED ONE Stop: 08/30/18 09:33 Ondansetron HCl (Zofran) 4 mg IVPUSH ONETIME PRN PRN Reason: Nausea/Vomiting Stop: 08/30/18 10:30 Oxycodone HCl (Oxycontin) 10 mg PO ONETIME ONE Stop: 08/30/18 06:01 Last Admin: 08/30/18 06:43 Dose: 10 mg Phenylephrine HCl (Phenylephrine In Ns 100 Mcg/Ml) Confirm Administered Dose 1 mg .ROUTE .STK-MED ONE Stop: 08/30/18 08:34 Phenylephrine HCl (Phenylephrine In Ns 100 Mcg/Ml) Confirm Administered Dose 1 mg .ROUTE .STK-MED ONE Stop: 08/30/18 09:27 Pregabalin (Lyrica) 50 mg PO ONETIME ONE Stop: 08/30/18 06:01 Last Admin: 08/30/18 06:43 Dose: 50 mg Propofol (Diprivan 20 Ml) Confirm Administered Dose 200 mg .ROUTE .STK-MED ONE Stop: 08/30/18 07:44 Ropivacaine (Naropin 0.5%) Confirm Administered Dose 30 ml .ROUTE .STK-MED ONE Stop: 08/30/18 07:34 Tranexamic Acid (Cyklokapron) Confirm Administered Dose 1,000 mg .ROUTE .STK- MED ONE Stop: 08/30/18 06:54 Last Admin: 08/30/18 09:38 Dose: 1,000 mg Tranexamic Acid (Cyklokapron) Confirm Administered Dose 1,000 mg .ROUTE .STK- MED ONE Stop: 08/30/18 07:17 Tranexamic Acid (Cyklokapron) Confirm Administered Dose 1,000 mg .ROUTE .STK- MED ONE Stop: 08/30/18 07:20 Vancomycin HCl (Vancomycin) Confirm Administered Dose 1 gm .ROUTE .[employer] ONE Stop: 08/30/18 06:55 Last Admin: 08/30/18 09:35 Dose: 1 gm - Exam Quality Assessment: DVT Prophylaxis General: Alert, Oriented, Cooperative, No Acute Distress HEENT: Pupils Equal, Pupils Reactive, EOMI, Mucous Membr. Moist/[place] Neck: Supple Lungs: Clear to Auscultation, Normal Respiratory Effort Cardiovascular: Regular Rate, Regular Rhythm GI/Abdominal Exam: Normal Bowel Sounds, Soft, Non-Tender, No Organomegaly, No Distention (Female) Exam: Deferred Back Exam: Normal Inspection, Full Range of Motion Extremities: No Pedal Edema, Normal Capillary Refill, Arm Pain (right shoulder ) , Limited Range of Motion, Other (Sling and bandage in place on left shoulder. Cooling pack in place. ) Peripheral Pulses: 2+: Radial (L), Radial (R), Dorsalis Pedis (L), Dorsalis Pedis (R) Skin: Warm, Dry, Intact Wound/Incisions: Dressing Dry and Intact, No Drainage Neurological: No New Focal Deficit Psy/Mental Status: Alert, Normal Affect, Normal Mood Consult PN Assessment/Plan POD#: 1 Procedures: Procedures ARTHROSCOP ROTATOR CUFF REPR (07/19/18) BONE IMAGING 3 PHASE (10/06/16) COMPLETE CBC W/AUTO DIFF WBC (12/29/16) COMPREHEN METABOLIC PANEL (12/29/16) DRAIN/INJ JOINT/BURSA W/O US (05/13/16) DXA BONE DENSITY AXIAL (11/05/16) EMERGENCY DEPT VISIT (03/27/16) EMERGENCY DEPT VISIT (11/08/14) GAIT TRAINING THERAPY (12/29/16) MEASURE BLOOD OXYGEN LEVEL (12/29/16) MR-STAPH DNA AMP PROBE (07/07/18) MRI JOINT UPR EXTREM W/O DYE (05/20/18) N BLOCK INJ BRACHIAL PLEXUS (07/19/18) OT EVAL LOW COMPLEX 30 MIN (12/29/16) PT EVAL MOD COMPLEX 30 MIN (12/29/16) ROUTINE VENIPUNCTURE (12/29/16) SELF CARE MNGMENT TRAINING (12/29/16) SHOULDER ARTHROSCOPY/SURGERY (07/19/18) THERAPEUTIC ACTIVITIES (12/29/16) THERAPEUTIC EXERCISES (12/29/16) X-RAY EXAM OF ANKLE (11/08/14) X-RAY EXAM OF KNEE 1 OR 2 (12/29/16) X-RAY EXAM OF LOWER LEG (11/08/14) X-RAY EXAM OF WRIST (03/27/16) (1) S/p reverse total shoulder arthroplasty SNOMED Code(s): 506546171, 390668513 Code(s): Z96.619 - PRESENCE OF UNSPECIFIED ARTIFICIAL SHOULDER JOINT Priority: High Current Visit: Yes Qualifiers: Laterality: left Qualified Code(s): Z96.612 - Presence of left artificial shoulder joint (2) Raynauds disease SNOMED Code(s): 126317805 Code(s): I73.00 - RAYNAUD'S SYNDROME WITHOUT GANGRENE Priority: Low Current Visit: No Qualifiers: Raynaud?s-associated gangrene presence: without gangrene Qualified Code(s) : I73.00 - Raynaud's syndrome without gangrene (3) Chronic lower back pain SNOMED Code(s): 268587718 Code(s): M54.5 - LOW BACK PAIN; G89.29 - OTHER CHRONIC PAIN Priority: Low Current Visit: No Qualifiers: Back pain laterality: unspecified Sciatica presence: unspecified whether sciatica present Qualified Code(s): M54.5 - Low back pain; G89.29 - Other chronic pain (4) HTN (hypertension) SNOMED Code(s): 91550683 Code(s): I10 - ESSENTIAL (PRIMARY) HYPERTENSION Priority: Low Current Visit: No Qualifiers: Hypertension type: essential hypertension Qualified Code(s): I10 - Essential (primary) hypertension (5) Lupus SNOMED Code(s): 55001786 Code(s): M32.9 - SYSTEMIC LUPUS ERYTHEMATOSUS, UNSPECIFIED Priority: Medium Current Visit: No Qualifiers: Systemic lupus erythematosus type: unspecified Systemic lupus erythematosus organ involvement: unspecified Qualified Code(s): M32.9 - Systemic lupus erythematosus, unspecified (6) Macular degeneration SNOMED Code(s): 590413498 Code(s): H35.30 - UNSPECIFIED MACULAR DEGENERATION Priority: Medium Current Visit: No (7) Osteoarthritis SNOMED Code(s): 662700783 Code(s): M19.90 - UNSPECIFIED OSTEOARTHRITIS, UNSPECIFIED SITE Priority: High Current Visit: Yes Qualifiers: Osteoarthritis location: shoulder Osteoarthritis type: primary Laterality : left Qualified Code(s): M19.012 - Primary osteoarthritis, left shoulder (8) Osteopenia SNOMED Code(s): 878807208 Code(s): M85.80 - OTH DISRD OF BONE DENSITY AND STRUCTURE, UNSPECIFIED SITE Priority: Medium Current Visit: No Qualifiers: Osteopenia location: unspecified Qualified Code(s): M85.80 - Other specified disorders of bone density and structure, unspecified site (9) Pancytopenia SNOMED Code(s): 157736755 Code(s): D61.818 - OTHER PANCYTOPENIA Priority: Medium Current Visit: No Problem List Initiated/Reviewed/Updated: Yes Plan: I/P: Acute: S/P left reverse total shoulder arthroplasty - post-operative day 1 -DVT prophylaxis and pain management per primary care team -PT/OT -IS/RT -Monitor oxygen saturation -Titrate oxygen as needed -Vital signs stable -Monitor labs -Pre-operative Hgb was 13.9; Now 10.9 -Pre-operative GFR was >90; Now >60 -Pre-operative BUN was 16; Now 21 -Pre-operative creatinine was 0.5; Now 0.8 -Pre-operative platelet count was 150; Now 137 -Pre-operative sodium of 134; Now 135 Osteoarthritis of left shoulder -Pain management per primary care team Chronic: Pancytopenia Discord lupus Raynauds Chronic lower back pain microhematuria osteopenia HTN Thrombocytopenia Plan: CM for discharge planning GI prophylaxis Home medications as indicated Other orders as listed above Routine AM labs She is a full code. Her PCP is Dr. Corona From a hospitalist standpoint Olamide is doing well. Pain is controlled. She has been up ambulating and working with therapies. Labs and vital signs remain stable. She has urinated and is off of oxygen. She is cleared for discharge pending primary team and PT/OT agreement. Thank you for allowing us to participate in the care of this patient!!
--- NOTE | 2018-08-31 08:35 | PCM.SURGPN ---
- General Info Date of Service: 08/31/18 POD#: 1 Functional Status: Reports: Pain Controlled, Tolerating Diet, Ambulating, Urinating, Incentive Spirometry, Other (The pt states she is doing well.) - Patient Data Vitals - Most Recent: Last Vital Signs Temp 98.2 F 08/31/18 03:14 Pulse 94 08/31/18 03:14 Resp 14 08/31/18 03:14 BP 104/57 L 08/31/18 06:01 Pulse Ox 99 08/31/18 03:14 Weight - Most Recent: 130 lb I&O - Last 24 Hours: Intake & Output 08/30/18 08/31/18 08/31/18 22:59 06:59 14:59 Intake Total 180 Balance 180 Lab Results Last 24 Hrs: Laboratory Results - last 24 hr 08/31/18 08/31/18 Range/Units 06:15 06:15 WBC 7.61 (3.98-10.04) K/mm3 RBC 3.75 L (3.98-5.22) M/mm3 Hgb 10.9 L (11.2-15.7) gm/L Hct 33.5 L (34.1-44.9) % MCV 89.3 (79.4-94.8) fl MCH 29.1 (25.6-32.2) pg MCHC 32.5 (32.2-35.5) g/dl RDW Std Deviation 46.1 (36.4-46.3) fL Plt Count 137 L (182-369) K/mm3 MPV 11.4 (9.4-12.3) fl Sodium 135 L (136-145) mEq/L Potassium 4.1 (3.5-5.1) mEq/L Chloride 101 (98-107) mEq/L Carbon Dioxide 26 (21-32) mEq/L Anion Gap 12.1 (5-15) BUN 21 H (7-18) mg/dL Creatinine 0.8 (0.55-1.02) mg/dL Est Cr Clr Drug Dosing 47.17 mL/min Estimated GFR (MDRD) > 60 (>60) mL/min BUN/Creatinine Ratio 26.3 H (14-18) Glucose 114 (83-115) mg/dL Calcium 8.4 L (8.5-10.1) mg/dL Total Bilirubin 0.5 (0.2-1.0) mg/dL AST 21 (15-37) U/L ALT 18 (14-59) U/L Alkaline Phosphatase 58 (46-116) U/L Total Protein 5.5 L (6.4-8.2) g/dl Albumin 2.9 L (3.4-5.0) g/dl Globulin 2.6 gm/dL Albumin/Globulin Ratio 1.1 (1-2) Med Orders - Current: Current Medications Hydrocodone Bitart/Acetaminophen ([place] 325-5 Mg) 1 - 2 tab PO Q4H PRN PRN Reason: Pain Last Admin: 08/31/18 06:02 Dose: 1 tab Aspirin (Ecotrin) 325 mg PO DAILY [facility] Bisacodyl (Dulcolax) 5 mg PO DAILY PRN PRN Reason: Constipation Cyclobenzaprine HCl (Flexeril) 5 mg PO BID PRN PRN Reason: Spasms Last Admin: 08/30/18 22:52 Dose: 5 mg Diltiazem HCl (Cardizem Cd) 300 mg PO DAILY [facility] Famotidine (Pepcid) 20 mg PO Q12H [facility] Last Admin: 08/30/18 20:50 Dose: 20 mg Gabapentin (Neurontin) 300 mg PO TID [facility] Last Admin: 08/30/18 20:50 Dose: 300 mg Hydrochlorothiazide (Hydrochlorothiazide) 12.5 mg PO BIDDIURETIC [facility] Last Admin: 08/31/18 06:00 Dose: 12.5 mg Hydroxychloroquine Sulfate (Plaquenil) 200 mg PO Q48H [facility] Hydroxychloroquine Sulfate (Plaquenil) 400 mg PO Q48H [facility] Lactated Ringer's (Ringers, Lactated) 1,000 mls @ 125 mls/hr IV ASDIRECTED [facility] Last Admin: 08/30/18 06:50 Dose: 125 mls/hr Losartan Potassium (Cozaar) 50 mg PO BIDDIURETIC [facility] Last Admin: 08/31/18 06:01 Dose: 50 mg Magnesium Hydroxide (Milk Of Magnesia) 30 ml PO BID PRN PRN Reason: Constipation Morphine Sulfate (Morphine) 2 mg IVPUSH Q2H PRN PRN Reason: Breakthrough Pain Naloxone HCl (Narcan) 0.1 mg IVPUSH Q5M PRN PRN Reason: Oversedation Ondansetron HCl (Zofran) 4 mg IVPUSH Q6H PRN PRN Reason: Nausea/Vomiting Diclofenac Sodium [ (Voltaren 1% Gel]) 0 each TOP BID PRN PRN Reason: Pain Senna (Senna) 8.6 mg PO BID PRN PRN Reason: Constipation Sodium Chloride (Saline Flush) 10 ml FLUSH ASDIRECTED PRN PRN Reason: Keep Vein Open Discontinued Medications Acetaminophen (Tylenol) 975 mg PO ONETIME ONE Stop: 08/30/18 06:01 Last Admin: 08/30/18 06:44 Dose: 975 mg Betamethasone Valerate (Valisone 0.1% Lotion) ml TOP ASDIRECTED PRN PRN Reason: Pain Cefazolin Sodium (Ancef) Confirm Administered Dose 2 gm .ROUTE .STK-MED ONE Stop: 08/30/18 06:55 Last Admin: 08/30/18 09:31 Dose: 2 gm Cefazolin Sodium/Dextrose (Ancef) Confirm Administered Dose 2 gm IV .STK-MED ONE Stop: 08/30/18 14:49 Last Admin: 08/30/18 16:33 Dose: Not Given Dexamethasone (Dexamethasone) Confirm Administered Dose 4 mg .ROUTE .STK-MED ONE Stop: 08/30/18 07:45 Diphenhydramine HCl (Benadryl) 6.25 mg IVPUSH Q6H PRN PRN Reason: pruritis Stop: 08/30/18 10:30 Ephedrine Sulfate (Ephedrine In Ns) Confirm Administered Dose 25 mg .ROUTE .STK- MED ONE Stop: 08/30/18 09:09 Epinephrine HCl (Adrenalin) Confirm Administered Dose 1 mg .ROUTE .STK-MED ONE Stop: 08/30/18 07:34 Fentanyl (Sublimaze) Confirm Administered Dose 250 mcg .ROUTE .STK-MED ONE Stop: 08/30/18 07:28 Fentanyl (Sublimaze) 25 mcg IVPUSH Q5M PRN PRN Reason: Pain Stop: 08/30/18 10:30 Glycopyrrolate (Robinul) Confirm Administered Dose 0.2 mg .ROUTE .STK-MED ONE Stop: 08/30/18 09:33 Cefazolin Sodium/Dextrose 2 gm (/ Premix) 50 mls @ 100 mls/hr IV Q8H [facility] Stop: 08/31/18 07:29 Last Admin: 08/31/18 06:50 Dose: 100 mls/hr Lidocaine HCl (Xylocaine-Mpf 1%) Confirm Administered Dose 4 mls @ as directed .ROUTE .STK-MED ONE Stop: 08/30/18 07:34 Lidocaine HCl (Xylocaine-Mpf 1%) Confirm Administered Dose 4 mls @ as directed .ROUTE .STK-MED ONE Stop: 08/30/18 07:45 Lactated Ringer's (Ringers, Lactated) Confirm Administered Dose 1,000 mls @ as directed .ROUTE .STK-MED ONE Stop: 08/30/18 09:32 Iodine (Iodine 2% Mild Tincture) Confirm Administered Dose 30 ml .ROUTE .STK- MED ONE Stop: 08/30/18 06:55 Last Admin: 08/30/18 09:28 Dose: 18 ml Ketorolac Tromethamine (Toradol) 15 mg IVPUSH Q6H PRN PRN Reason: Pain Last Admin: 08/31/18 03:05 Dose: 15 mg Lidocaine/Sodium Bicarbonate (Buffered Lidocaine 1% In Ns 8.4%) 0.25 ml IDERM ONETIME PRN PRN Reason: Prior to IV Start Last Admin: 08/30/18 06:50 Dose: 0.25 ml Midazolam HCl (Versed 1 Mg/Ml) Confirm Administered Dose 2 mg .ROUTE .ST-MED ONE Stop: 08/30/18 07:28 Neostigmine Methylsulfate (Neostigmine) Confirm Administered Dose 5 mg .ROUTE .STK-MED ONE Stop: 08/30/18 09:33 Ondansetron HCl (Zofran) 4 mg IVPUSH ONETIME PRN PRN Reason: Nausea/Vomiting Stop: 08/30/18 10:30 Oxycodone HCl (Oxycontin) 10 mg PO ONETIME ONE Stop: 08/30/18 06:01 Last Admin: 08/30/18 06:43 Dose: 10 mg Phenylephrine HCl (Phenylephrine In Ns 100 Mcg/Ml) Confirm Administered Dose 1 mg .ROUTE .STK-MED ONE Stop: 08/30/18 08:34 Phenylephrine HCl (Phenylephrine In Ns 100 Mcg/Ml) Confirm Administered Dose 1 mg .ROUTE .STK-MED ONE Stop: 08/30/18 09:27 Pregabalin (Lyrica) 50 mg PO ONETIME ONE Stop: 08/30/18 06:01 Last Admin: 08/30/18 06:43 Dose: 50 mg Propofol (Diprivan 20 Ml) Confirm Administered Dose 200 mg .ROUTE .STK-MED ONE Stop: 08/30/18 07:44 Ropivacaine (Naropin 0.5%) Confirm Administered Dose 30 ml .ROUTE .STK-MED ONE Stop: 08/30/18 07:34 Tranexamic Acid (Cyklokapron) Confirm Administered Dose 1,000 mg .ROUTE .STK- MED ONE Stop: 08/30/18 06:54 Last Admin: 08/30/18 09:38 Dose: 1,000 mg Tranexamic Acid (Cyklokapron) Confirm Administered Dose 1,000 mg .ROUTE .STK- MED ONE Stop: 08/30/18 07:17 Tranexamic Acid (Cyklokapron) Confirm Administered Dose 1,000 mg .ROUTE .STK- MED ONE Stop: 08/30/18 07:20 Vancomycin HCl (Vancomycin) Confirm Administered Dose 1 gm .ROUTE .STK-MED ONE Stop: 08/30/18 06:55 Last Admin: 08/30/18 09:35 Dose: 1 gm - Exam Wound/Incisions: Dressing Dry and Intact General: Alert, Cooperative, No Acute Distress Lungs: Normal Respiratory Effort Extremities: Other (NVS intact for LUE. Abebe's negative.) - Problem List Review Problem List Initiated/Reviewed/Updated: Yes - My Orders Last 24 Hours: Active Orders 24 hr Category Date Time Status Notify Provider [RC] ASDIRECTED Care 08/30/18 07:39 Active Ready for Discharge [RC] PER UNIT ROUTINE Care 08/31/18 08:21 Active Regular Diet [DIET] Diet 08/30/18 Dinner Active Aspirin [Ecotrin] Med 08/31/18 09:00 Active 325 mg PO DAILY Diltiazem [Cardizem CD] Med 08/31/18 09:00 Active 300 mg PO DAILY Famotidine [Pepcid] Med 08/30/18 21:00 Active 20 mg PO Q12H Gabapentin [Neurontin] Med 08/30/18 15:00 Active 300 mg PO TID Hydroxychloroquine [Plaquenil] Med 08/30/18 13:00 Pending 200 mg PO Q48H Hydroxychloroquine [Plaquenil] Med 08/30/18 13:00 Pending 400 mg PO Q48H Losartan [Cozaar] Med 08/30/18 14:00 Active 50 mg PO BIDDIURETIC Magnesium Hydroxide [Milk of Magnesia] Med 08/30/18 21:00 Active 30 ml PO BID PRN Patient's Own Medication [Ptom] Med 08/30/18 12:52 Active 0 each TOP BID PRN hydroCHLOROthiazide Med 08/30/18 14:00 Active 12.5 mg PO BIDDIURETIC Medication Orders Hydrocodone Bitart/Acetaminophen ([place] 325-5 Mg) 1 - 2 tab PO Q4H PRN PRN Reason: Pain Last Admin: 08/31/18 06:02 Dose: 1 tab Aspirin (Ecotrin) 325 mg PO DAILY [facility] Bisacodyl (Dulcolax) 5 mg PO DAILY PRN PRN Reason: Constipation Cyclobenzaprine HCl (Flexeril) 5 mg PO BID PRN PRN Reason: Spasms Last Admin: 08/30/18 22:52 Dose: 5 mg Diltiazem HCl (Cardizem Cd) 300 mg PO DAILY [facility] Famotidine (Pepcid) 20 mg PO Q12H [facility] Last Admin: 08/30/18 20:50 Dose: 20 mg Gabapentin (Neurontin) 300 mg PO TID [facility] Last Admin: 08/30/18 20:50 Dose: 300 mg Admin: 08/30/18 14:53 Dose: 300 mg Hydrochlorothiazide (Hydrochlorothiazide) 12.5 mg PO BIDDIURETIC [facility] Last Admin: 08/31/18 06:00 Dose: 12.5 mg Admin: 08/30/18 14:53 Dose: 12.5 mg Hydroxychloroquine Sulfate (Plaquenil) 200 mg PO Q48H [facility] Hydroxychloroquine Sulfate (Plaquenil) 400 mg PO Q48H [facility] Lactated Ringer's (Ringers, Lactated) 1,000 mls @ 125 mls/hr IV ASDIRECTED [facility] Last Admin: 08/30/18 06:50 Dose: 125 mls/hr Losartan Potassium (Cozaar) 50 mg PO BIDDIURETIC [facility] Last Admin: 08/31/18 06:01 Dose: 50 mg Admin: 08/30/18 14:54 Dose: 50 mg Magnesium Hydroxide (Milk Of Magnesia) 30 ml PO BID PRN PRN Reason: Constipation Morphine Sulfate (Morphine) 2 mg IVPUSH Q2H PRN PRN Reason: Breakthrough Pain Naloxone HCl (Narcan) 0.1 mg IVPUSH Q5M PRN PRN Reason: Oversedation Ondansetron HCl (Zofran) 4 mg IVPUSH Q6H PRN PRN Reason: Nausea/Vomiting Diclofenac Sodium [ (Voltaren 1% Gel]) 0 each TOP BID PRN PRN Reason: Pain Senna (Senna) 8.6 mg PO BID PRN PRN Reason: Constipation Sodium Chloride (Saline Flush) 10 ml FLUSH ASDIRECTED PRN PRN Reason: Keep Vein Open - Assessment Assessment (Free Text/Narrative):: POD#1 - left reverse TSA - Plan Plan (Free Text/Narrative):: 1. Hgb 10.9. 2. Discharge to home today. 3. Pt advised to HOLD use of azothiaprine x 3 days post-op. 4. Pt agreeable to increase ASA to 325mg at this time. 5. Outpatient therapy. The pt's case was discussed with Dr. Stahl.
--- NOTE | 2018-08-31 08:37 | PCM.DCSUM1 ---
Discharge Summary - Hospital Course Brief History: Olamide is a 78 yo female who underwent left reverse TSA with Dr. Stahl on 08-30-2018. The procedure was completed under general anesthesia with regional block. The pt tolerated the procedure well and was admitted to the [facility] under Medical-Surgical status. Medical management was provided by the Hospitalist service. The pt's Hospital course was uneventful. The pt's Hgb on POD#1 was 10.9. On POD#1, 325mg ASA daily was initiated for VTE prophylaxis. SCDs and TEDs were also ordered. A Mepilex dressing was placed at the incision site at the time of surgery and remained clean and dry. The pt participated in P.T. and O.T. and progressed well. On POD#1, the pt was deemed appropriate to discharge to home with her . - Discharge Data Discharge Date: 08/31/18 Discharge Disposition: Home, Self-Care 01 Condition: Good - Patient Summary/Data Consults: Consultations 08/30/18 06:52 OT Evaluation and Treatment [CONS] Routine PT Evaluation and Treatment [CONS] Routine 08/30/18 06:54 Consult to Physician [CONS] Routine - Patient Instructions Diet: Usual Diet as Tolerated Activity: Apply Ice, As Tolerated, Elevate Extremity Activity, Other: No forceful use of the surgical limb. Driving: Do Not Drive Showering/Bathing: May Shower Wound/Incision Care: Keep Operative Site/Wound Site Clean and Dry, Do NOT Change Dressing Notify Provider of: Fever, Increased Pain, Swelling and Redness, Drainage, Nausea and/or Vomiting Other/Special Instructions: Please get up and moving around EVERY HOUR while awake. Take a short walk every hour while awake. This helps to prevent blood clots. Have help with mobility as needed. Please take 325mg aspirin daily - this also helps to prevent blood clots. The medication is being used for blood clot prevention and not for pain control, so please use the medication daily as directed. You do not need to use an 81mg aspirin also. At this time, please use a 325mg aspirin daily. You could use a medication like Zantac or Pepcid and a medication like omeprazole (Prilosec) or Nexium to protect your stomach while using the aspirin. Please wear the SHARYN hose during the day and you may remove them at night. Please schedule for occupational or physical therapy. Complete the exercises and stretches that were instructed in the Hospital. Wear the immobilizer as directed. Please use the pain medication as needed. The medication may cause drowsiness and/or constipation. You could use a stool softener like docusate sodium or Colace 100mg twice daily and/or a laxative like Miralax daily for constipation. Contact your primary care provider for further instructions if you are constipated. Discontinue use of the pain medication as soon as able. Please do not use other medications that may cause drowsiness (other pain medications, anxiety pills, sleeping pills, allergy medications that cause drowsiness) while using the pain medication. Please do not use alcohol while using the pain medication. Use the incentive spirometer often. Please place ice to the surgical site often. Place a towel between your skin and the blue pad. Please elevate the limb to decrease swelling. Keep the dressing in place until follow-up. Please notify the Clinic if the dressing is saturated or rolls. Increase protein intake in your diet as this helps with healing. If you are a diabetic, please closely monitor your blood sugars and notify your primary care provider of your values. Elevated blood sugars increases the risk of infection. DO NOT resume use of azothiaprine until 3 days after surgery (as directed by Dr. Lewis). Please call [phone] with questions or concerns. - Discharge Plan *PRESCRIPTION DRUG MONITORING PROGRAM REVIEWED*: No *COPY OF PRESCRIPTION DRUG MONITORING REPORT IN PATIENT BERTHA: No Prescriptions/Med Rec: Acetaminophen/HYDROcodone [[place] 325-5 MG] 1 - 2 tab PO Q6H PRN #60 tablet PRN Reason: Pain Home Medications: Home Meds Gabapentin [Neurontin] 300 mg PO TID 03/27/16 [History] Hydroxychloroquine [Plaquenil] 400 mg PO Q48H 03/27/16 [History] Losartan/Hydrochlorothiazide [Losartan-HCTZ 50-12.5 MG] 1 tab PO BID 03/27/16 [ History] Betamethasone Valerate 1 applic TP ASDIRECTED PRN 12/26/16 [History] Lysine 500 mg PO DAILY 12/26/16 [History] Acetaminophen [Tylenol] 650 mg PO Q4H PRN 07/16/18 [History] Diclofenac Sodium [Voltaren 1% Gel] 1 dose TOP BID PRN 07/16/18 [History] Hydroxychloroquine [Plaquenil] 200 mg PO Q48H 07/16/18 [History] dilTIAZem HCl [Diltiazem 24Hr ER] 300 mg PO DAILY 07/16/18 [History] Acetaminophen/HYDROcodone [[place] 325-5 MG] 1 - 2 tab PO Q6H PRN #60 tablet 08/31 [Rx] Aspirin [Ecotrin] 325 mg PO DAILY tab.ec 08/31/18 [Rx] Bisacodyl [Dulcolax] 5 mg PO DAILY PRN tablet 08/31/18 [Rx] Famotidine [Pepcid] 20 mg PO Q12H tablet 08/31/18 [Rx] Magnesium Hydroxide [Milk of Magnesia] 30 ml PO BID PRN cup 08/31/18 [Rx] Sennosides [Senna] 8.6 mg PO BID PRN tablet 08/31/18 [Rx] Referrals: Cassi Plasencia PA-C [Primary Care Provider] - - Discharge Summary/Plan Comment DC Time >30 min.: No - Patient Data Vitals - Most Recent: Last Vital Signs Temp 98.2 F 08/31/18 03:14 Pulse 94 08/31/18 03:14 Resp 14 08/31/18 03:14 BP 104/57 L 08/31/18 06:01 Pulse Ox 99 08/31/18 03:14 Weight - Most Recent: 130 lb I&O - Last 24 hours: Intake & Output 08/30/18 08/31/18 08/31/18 22:59 06:59 14:59 Intake Total 180 Balance 180 Lab Results - Last 24 hrs: Laboratory Results - last 24 hr 08/31/18 08/31/18 Range/Units 06:15 06:15 WBC 7.61 (3.98-10.04) K/mm3 RBC 3.75 L (3.98-5.22) M/mm3 Hgb 10.9 L (11.2-15.7) gm/L Hct 33.5 L (34.1-44.9) % MCV 89.3 (79.4-94.8) fl MCH 29.1 (25.6-32.2) pg MCHC 32.5 (32.2-35.5) g/dl RDW Std Deviation 46.1 (36.4-46.3) fL Plt Count 137 L (182-369) K/mm3 MPV 11.4 (9.4-12.3) fl Sodium 135 L (136-145) mEq/L Potassium 4.1 (3.5-5.1) mEq/L Chloride 101 (98-107) mEq/L Carbon Dioxide 26 (21-32) mEq/L Anion Gap 12.1 (5-15) BUN 21 H (7-18) mg/dL Creatinine 0.8 (0.55-1.02) mg/dL Est Cr Clr Drug Dosing 47.17 mL/min Estimated GFR (MDRD) > 60 (>60) mL/min BUN/Creatinine Ratio 26.3 H (14-18) Glucose 114 (83-115) mg/dL Calcium 8.4 L (8.5-10.1) mg/dL Total Bilirubin 0.5 (0.2-1.0) mg/dL AST 21 (15-37) U/L ALT 18 (14-59) U/L Alkaline Phosphatase 58 (46-116) U/L Total Protein 5.5 L (6.4-8.2) g/dl Albumin 2.9 L (3.4-5.0) g/dl Globulin 2.6 gm/dL Albumin/Globulin Ratio 1.1 (1-2) Med Orders - Current: Current Medications Hydrocodone Bitart/Acetaminophen ([place] 325-5 Mg) 1 - 2 tab PO Q4H PRN PRN Reason: Pain Last Admin: 08/31/18 06:02 Dose: 1 tab Aspirin (Ecotrin) 325 mg PO DAILY [facility] Bisacodyl (Dulcolax) 5 mg PO DAILY PRN PRN Reason: Constipation Cyclobenzaprine HCl (Flexeril) 5 mg PO BID PRN PRN Reason: Spasms Last Admin: 08/30/18 22:52 Dose: 5 mg Diltiazem HCl (Cardizem Cd) 300 mg PO DAILY [facility] Famotidine (Pepcid) 20 mg PO Q12H [facility] Last Admin: 08/30/18 20:50 Dose: 20 mg Gabapentin (Neurontin) 300 mg PO TID [facility] Last Admin: 08/30/18 20:50 Dose: 300 mg Hydrochlorothiazide (Hydrochlorothiazide) 12.5 mg PO BIDDIURETIC [facility] Last Admin: 08/31/18 06:00 Dose: 12.5 mg Hydroxychloroquine Sulfate (Plaquenil) 200 mg PO Q48H [facility] Hydroxychloroquine Sulfate (Plaquenil) 400 mg PO Q48H [facility] Lactated Ringer's (Ringers, Lactated) 1,000 mls @ 125 mls/hr IV ASDIRECTED [facility] Last Admin: 08/30/18 06:50 Dose: 125 mls/hr Losartan Potassium (Cozaar) 50 mg PO BIDDIURETIC [facility] Last Admin: 08/31/18 06:01 Dose: 50 mg Magnesium Hydroxide (Milk Of Magnesia) 30 ml PO BID PRN PRN Reason: Constipation Morphine Sulfate (Morphine) 2 mg IVPUSH Q2H PRN PRN Reason: Breakthrough Pain Naloxone HCl (Narcan) 0.1 mg IVPUSH Q5M PRN PRN Reason: Oversedation Ondansetron HCl (Zofran) 4 mg IVPUSH Q6H PRN PRN Reason: Nausea/Vomiting Diclofenac Sodium [ (Voltaren 1% Gel]) 0 each TOP BID PRN PRN Reason: Pain Senna (Senna) 8.6 mg PO BID PRN PRN Reason: Constipation Sodium Chloride (Saline Flush) 10 ml FLUSH ASDIRECTED PRN PRN Reason: Keep Vein Open Discontinued Medications Acetaminophen (Tylenol) 975 mg PO ONETIME ONE Stop: 08/30/18 06:01 Last Admin: 08/30/18 06:44 Dose: 975 mg Betamethasone Valerate (Valisone 0.1% Lotion) ml TOP ASDIRECTED PRN PRN Reason: Pain Cefazolin Sodium (Ancef) Confirm Administered Dose 2 gm .ROUTE .STK-MED ONE Stop: 08/30/18 06:55 Last Admin: 08/30/18 09:31 Dose: 2 gm Cefazolin Sodium/Dextrose (Ancef) Confirm Administered Dose 2 gm IV .STK-MED ONE Stop: 08/30/18 14:49 Last Admin: 08/30/18 16:33 Dose: Not Given Dexamethasone (Dexamethasone) Confirm Administered Dose 4 mg .ROUTE .STK-MED ONE Stop: 08/30/18 07:45 Diphenhydramine HCl (Benadryl) 6.25 mg IVPUSH Q6H PRN PRN Reason: pruritis Stop: 08/30/18 10:30 Ephedrine Sulfate (Ephedrine In Ns) Confirm Administered Dose 25 mg .ROUTE .STK- MED ONE Stop: 08/30/18 09:09 Epinephrine HCl (Adrenalin) Confirm Administered Dose 1 mg .ROUTE .STK-MED ONE Stop: 08/30/18 07:34 Fentanyl (Sublimaze) Confirm Administered Dose 250 mcg .ROUTE .STK-MED ONE Stop: 08/30/18 07:28 Fentanyl (Sublimaze) 25 mcg IVPUSH Q5M PRN PRN Reason: Pain Stop: 08/30/18 10:30 Glycopyrrolate (Robinul) Confirm Administered Dose 0.2 mg .ROUTE .STK-MED ONE Stop: 08/30/18 09:33 Cefazolin Sodium/Dextrose 2 gm (/ Premix) 50 mls @ 100 mls/hr IV Q8H [facility] Stop: 08/31/18 07:29 Last Admin: 08/31/18 06:50 Dose: 100 mls/hr Lidocaine HCl (Xylocaine-Mpf 1%) Confirm Administered Dose 4 mls @ as directed .ROUTE .STK-MED ONE Stop: 08/30/18 07:34 Lidocaine HCl (Xylocaine-Mpf 1%) Confirm Administered Dose 4 mls @ as directed .ROUTE .STK-MED ONE Stop: 08/30/18 07:45 Lactated Ringer's (Ringers, Lactated) Confirm Administered Dose 1,000 mls @ as directed .ROUTE .STK-MED ONE Stop: 08/30/18 09:32 Iodine (Iodine 2% Mild Tincture) Confirm Administered Dose 30 ml .ROUTE .STK- MED ONE Stop: 08/30/18 06:55 Last Admin: 08/30/18 09:28 Dose: 18 ml Ketorolac Tromethamine (Toradol) 15 mg IVPUSH Q6H PRN PRN Reason: Pain Last Admin: 08/31/18 03:05 Dose: 15 mg Lidocaine/Sodium Bicarbonate (Buffered Lidocaine 1% In Ns 8.4%) 0.25 ml IDERM ONETIME PRN PRN Reason: Prior to IV Start Last Admin: 08/30/18 06:50 Dose: 0.25 ml Midazolam HCl (Versed 1 Mg/Ml) Confirm Administered Dose 2 mg .ROUTE .STK-MED ONE Stop: 08/30/18 07:28 Neostigmine Methylsulfate (Neostigmine) Confirm Administered Dose 5 mg .ROUTE .ST-MED ONE Stop: 08/30/18 09:33 Ondansetron HCl (Zofran) 4 mg IVPUSH ONETIME PRN PRN Reason: Nausea/Vomiting Stop: 08/30/18 10:30 Oxycodone HCl (Oxycontin) 10 mg PO ONETIME ONE Stop: 08/30/18 06:01 Last Admin: 08/30/18 06:43 Dose: 10 mg Phenylephrine HCl (Phenylephrine In Ns 100 Mcg/Ml) Confirm Administered Dose 1 mg .ROUTE .STK-MED ONE Stop: 08/30/18 08:34 Phenylephrine HCl (Phenylephrine In Ns 100 Mcg/Ml) Confirm Administered Dose 1 mg .ROUTE .ST-MED ONE Stop: 08/30/18 09:27 Pregabalin (Lyrica) 50 mg PO ONETIME ONE Stop: 08/30/18 06:01 Last Admin: 08/30/18 06:43 Dose: 50 mg Propofol (Diprivan 20 Ml) Confirm Administered Dose 200 mg .ROUTE .STK-MED ONE Stop: 08/30/18 07:44 Ropivacaine (Naropin 0.5%) Confirm Administered Dose 30 ml .ROUTE .ST-MED ONE Stop: 08/30/18 07:34 Tranexamic Acid (Cyklokapron) Confirm Administered Dose 1,000 mg .ROUTE .STK- MED ONE Stop: 08/30/18 06:54 Last Admin: 08/30/18 09:38 Dose: 1,000 mg Tranexamic Acid (Cyklokapron) Confirm Administered Dose 1,000 mg .ROUTE .STK- MED ONE Stop: 08/30/18 07:17 Tranexamic Acid (Cyklokapron) Confirm Administered Dose 1,000 mg .ROUTE .STK- MED ONE Stop: 08/30/18 07:20 Vancomycin HCl (Vancomycin) Confirm Administered Dose 1 gm .ROUTE .STK-MED ONE Stop: 08/30/18 06:55 Last Admin: 08/30/18 09:35 Dose: 1 gm
[2018-08-31] MEDS: Gabapentin 300 MG Cap PO SCH (08:39)
[2018-08-31] MEDS: Famotidine 20 MG Tab PO SCH (08:40)
[2018-08-31] MEDS ORDERED: Diltiazem 300 MG Cap.CD PO SCH (09:00)
[2018-08-31] MEDS ORDERED: Aspirin 325 MG Tab.EC PO SCH (09:00)
[2018-08-31] MEDS ORDERED: Hydroxychloroquine 200 MG Tab PO SCH (09:00)
[2018-09-01] MEDS ORDERED: Hydroxychloroquine 200 MG Tab PO SCH (09:00)
--- NOTE | 2018-09-02 07:10 | PCM.OPNOTE ---
- General Post-Op/Procedure Note Date of Surgery/Procedure: 08/30/18 Operative Procedure(s): left reverse total shoulder arthroplasty Pre Op Diagnosis: left shoulder rotator cuff tear arthropathy Post-Op Diagnosis: Same Anesthesia Technique: General ET Tube, Regional Block Primary Surgeon: Valentin Stahl Anesthesia Provider: Hanna Bradshaw Slash Trimmer: Cassi Plasencia Slash Trimmer: Katie Beasley EBL in mLs: 200 Complications: None Condition: Good Free Text/Narrative:: size 36+4 small baseplate size 5 stem 6mm poly
--- NOTE | 2018-09-02 08:15 | OR ---
DATE OF OPERATION: 08/30/2018 SURGEON: Valentin Stahl MD OPERATION PERFORMED: Left reverse total shoulder arthroplasty. PREOPERATIVE DIAGNOSIS: Left shoulder rotator cuff tear arthropathy. POSTOPERATIVE DIAGNOSIS: Left shoulder rotator cuff tear arthropathy. ANESTHESIA: General endotracheal intubation with regional interscalene block. ANESTHESIA PROVIDER: Hanna Bradshaw CRNA CORROSION CONTROL ENGINEER: 1. Cassi Plasencia PA-C. 2. Katie Beasley LPN. ESTIMATED BLOOD LOSS: 200 mL. COMPLICATIONS: None. CONDITION: Stable. DESCRIPTION OF PROCEDURE: The patient was identified in the preop holding area. Proper site was marked and identified by the surgeon. The patient was taken back to the operating theater where after adequate anesthesia, the patient was placed supine on a radiolucent flat top table. The patient was secured to the table. At this time, the left upper extremity was sterilely prepped and draped in the usual sterile fashion. OR time-out was performed. The patient received 2 g IV Ancef. At this time, the patient was placed in a reverse Trendelenburg position and a deltopectoral incision was made. This was taken down to the cephalic vein. The cephalic vein was identified. Deltopectoral interval was then found. A Fukuda retractor was placed out laterally at the subdeltoid space. All subdeltoid as well as subacromial adhesions were resected at this time. The clavipectoral fascia was incised, and the conjoint tendon was retracted medially. The anterior humeral circumflex vessels were identified and were ligated using 0 Vicryl stick tie. The biceps tendon was identified and subpectoral tenodesis was then performed. The biceps tendon interval was then opened all the way back to the level of the glenoid and the biceps tendon was resected. Peel down of the subscapularis tendon was then done and the humeral head was identified. The neck cut was then completed and attention was turned to the glenoid. Posterior as well as anterior retractors were then placed and circumferential removal of the capsule as well as the labrum was done from around the glenoid. At this time, a guide pin was placed in a center-center position. The central reamer hole for a small base plate was then done and then the peripheral reamer for a small base plate was done. There was found to have adequate placement. The small glenoid baseplate was then impacted into place and a central nonlocking compression screw was placed inferior and then superior locking screws were then placed in divergent fashion. Attention was then turned back to the humerus. I was able to broach up to a size 5 which was found to be rotationally and vertically stable. The trial components were 135 degrees. They were assembled on the back table. The 36, +4 mm glenosphere was then impacted into place, and we trialed the humeral components. A +3 was noted to have just a slight amount of laxity on the conjoined tendon, so +6 was found to have adequate lutheran of tension on both the deltoid as well as the conjoined tendon with no signs of instability. At this time, the size 5 stem with 135 degrees for small base plate was then constructed on the back table. A +6 mm poly was then impacted into place and the whole construct was impacted in the humerus. The patient's humerus was then CR of the patient's glenohumeral joint was then relocated. C- arm fluoroscopy was utilized to show that all components were in place. 1 L dilute Betadine solution was irrigated through the shoulder along with 3 L pulse lavage irrigation with Ancef. Topical tranexamic acid as well as vancomycin powder was placed. #2 FiberWire was used for closure of the rotator interval, 2 - 0 Vicryl was used subcutaneously. Prineo was used for the skin. The patient tolerated the procedure well and sent to PACU in stable condition. LORNA /[id number] MARCO
== END 2018-08-31 12:20 | disposition home or self-care (01) | DRG 483 ==
LOC: JD.OB 06:14
PROVIDERS: ADMIT Orthopaedic Surgery; ATTEND Orthopaedic Surgery
PROC: 0RRK00Z Replacement of Left Shoulder Joint with Reverse Ball and Socket Synthetic Substitute, Open Approach (ICD-10-PCS; principal; 2018-08-30)
PROC: 3E0T3BZ Introduction of Anesthetic Agent into Peripheral Nerves and Plexi, Percutaneous Approach (ICD-10-PCS; 2018-08-30)
DX: M19.012 Primary osteoarthritis, left shoulder (principal); D61.818 Other pancytopenia; M32.9 Systemic lupus erythematosus, unspecified; M75.102 Unspecified rotator cuff tear or rupture of left shoulder, not specified as traumatic; M85.89 Other specified disorders of bone density and structure, multiple sites; I10 Essential (primary) hypertension; I73.00 Raynaud's syndrome without gangrene; G89.29 Other chronic pain; H54.7 Unspecified visual loss; M54.5 Low back pain; H35.30 Unspecified macular degeneration; G89.18 Other acute postprocedural pain; Z86.010 Personal history of colon polyps; Z79.899 Other long term (current) drug therapy; Z79.82 Long term (current) use of aspirin; Z88.1 Allergy status to other antibiotic agents; Z87.440 Personal history of urinary (tract) infections; Z88.2 Allergy status to sulfonamides; Z88.8 Allergy status to other drugs, medicaments and biological substances; Z96.659 Presence of unspecified artificial knee joint
CPT/HCPCS: 01638; 36415; 64415; 73020-26-LT; 73020-LT; 76000; 76000-26; 80053; 85027; 87641; 97110-GP; 97116-GP; 97161-GP; 97165-GO; 97535-GO; A9270-GY; J0171; J0690; J1100; J1885; J2001; J2250; J2370; J2704; J2710; J2795; J3010; J3370; J3490; J7050; J7120

== ENCOUNTER 2019-12-07 19:42 | Emergency (ER) | payer MEDICARE, OTHER ==
[2019-12-07 20:07] VITALS: BP 125/57; PULSE 95
[2019-12-07] MEDS ORDERED: methylPREDNISolone Sodium Succinate 125 MG/2 ML SDV IVPUSH ONE (21:18)
[2019-12-07] MEDS ORDERED: Sodium Chloride 0.9% 1,000 ML IV ONE (21:18)
[2019-12-07] MEDS ORDERED: Famotidine 20 MG/2 ML SDV IVPUSH ONE (21:18)
[2019-12-07] MEDS ORDERED: diphenhydrAMINE 50 MG/ML SDV IVPUSH ONE (21:18)
[2019-12-07] MEDS ORDERED: Sodium Chloride 0.9% 10 ML Syringe FLUSH PRN (21:18)
--- NOTE | 2019-12-07 21:51 | EDM.PDOC ---
ED HPI GENERAL MEDICAL PROBLEM - General Chief Complaint: Allergic Reaction Stated Complaint: BUG BITE RIGHT ARM Time Seen by Provider: 12/07/19 21:07 Source of Information: Reports: Patient, RN Notes Reviewed History Limitations: Reports: No Limitations - History of Present Illness INITIAL COMMENTS - FREE TEXT/NARRATIVE: Patient is an 79-year-old female who presents to the ED for the evaluation of bee or wasp sting. She believes she is having allergic reaction, and she states there is redness spreading up her arm, and onto her abdomen. She thinks she was stung by this be a little before 7 PM. She did note that her right forearm was having pain, her skin is slightly itchy, and again the redness does seem to be spreading up her arm and onto her right side of her chest and abdomen patient states that she became sweaty, and then felt a little bit lightheaded and states that she "passed out" in the chair right after the sting happened. She denies any shortness of breath, swelling to the face or throat, or any other sick-like symptoms, fever/chills, nausea/vomiting/diarrhea. She did take 1 tablet of Benadryl for management, and states it did not really relieve much of her symptoms. - Related Data Allergies Allergy/AdvReac Type Severity Reaction Status Date / Time JANELL Inhibitors Allergy Cannot Verified 12/07/19 20:07 Remember amoxicillin Allergy Cannot Verified 12/07/19 20:07 Remember Sulfa (Sulfonamide Allergy Cannot Verified 12/07/19 20:07 Antibiotics) Remember Home Meds: Home Meds Gabapentin [Neurontin] 300 mg PO TID 03/27/16 [History] Hydroxychloroquine [Plaquenil] 400 mg PO Q48H 03/27/16 [History] Losartan/Hydrochlorothiazide [Losartan-HCTZ 50-12.5 MG] 1 tab PO BID 03/27/16 [History] Betamethasone Valerate 1 applic TP ASDIRECTED PRN 12/26/16 [History] Lysine 500 mg PO DAILY 12/26/16 [History] Acetaminophen [Tylenol] 650 mg PO Q4H PRN 07/16/18 [History] Hydroxychloroquine [Plaquenil] 400 mg PO DAILY 07/16/18 [History] dilTIAZem HCL [Diltiazem 24Hr ER (Cd)] 300 mg PO DAILY 07/16/18 [History] Sennosides [Senna] 8.6 mg PO BID PRN tablet 08/31/18 [Rx] Aspirin 81 mg PO DAILY 12/07/19 [History] Biotin 5,000 mcg PO DAILY 12/07/19 [History] Cranberry 400 mg PO DAILY 12/07/19 [History] FA/Lycopene/Lut/MV,Ca,Iron,Min [Centrum] 1 tab PO DAILY 12/07/19 [History] azaTHIOprine [Imuran] 50 mg PO BID 12/07/19 [History] predniSONE 20 mg PO ASDIRECTED #15 tab 12/07/19 [Rx] Past Medical History HEENT History: Reports: Impaired Vision, Macular Degeneration, Other (See Below) Other HEENT History: has glasses, dentures Cardiovascular History: Reports: Hypertension Other Cardiovascular History: Dependent edema Gastrointestinal History: Reports: Colon Polyp Musculoskeletal History: Reports: Osteoarthritis, Other (See Below) Other Musculoskeletal History: left shoulder pain Neurological History: Reports: Other (See Below) Other Neuro History: Mild kyphosis Endocrine/Metabolic History: Reports: Osteopenia Other Endocrine/Metabolic History: Lupus Hematologic History: Reports: Other (See Below) Other Hematologic History: thrombocytopenia, pancytopenia Immunologic History: Reports: SLE Other Immunologic History: Lupus Dermatologic History: Reports: Other (See Below) Other Dermatologic History: Dry skin - Past Surgical History GI Surgical History: Reports: Colonoscopy Female Surgical History: Reports: D&C Musculoskeletal Surgical History: Reports: Carpal Tunnel, Knee Replacement Oncologic Surgical History: Reports: Bone Marrow Aspiration, Other (See Below) Other Oncologic Surgeries/Procedures: lymph node biopsy Social & Family History - Family History Family Medical History: Noncontributory - Tobacco Use Smoking Status *Q: Never Smoker - Caffeine Use Caffeine Use: Reports: Coffee Caffeine Use Comment: for breakfast - Recreational Drug Use Recreational Drug Use: No ED ROS ALLERGIC REACTION - Review of Systems Review Of Systems: Comprehensive ROS is negative, except as noted in HPI. ED EXAM GENERAL NO PERIP PULSE - Physical Exam Exam: See Below Exam Limited By: No Limitations General Appearance: Alert, WD/WN, No Apparent Distress Throat/Mouth: Normal Inspection, Normal Lips, Normal Teeth, Normal Gums, Normal Oropharynx, Normal Voice, No Airway Compromise Respiratory/Chest: No Respiratory Distress, Lungs Clear, Normal Breath Sounds, No Accessory Muscle Use, Chest Non-Tender Cardiovascular: Normal Peripheral Pulses, Regular Rate, Rhythm, No Edema, No Murmur GI/Abdominal: Normal Bowel Sounds, Soft, Non-Tender, No Distention, No Mass Extremities: Normal Range of Motion, Normal Capillary Refill Neurological: Alert, Oriented, Normal Cognition, No Motor/Sensory Deficits Psychiatric: Normal Affect, Normal Mood Skin Exam: Warm, Dry, Intact, No Rash, Erythema (Patient does have an area that does look like a wasp sting on her right inner forearm, but there is redness extending up the forearm, up the inner arm, anterior shoulder, over the anterior right chest, and onto the patient's abdomen. This is slightly itchy, and also a little tender to the touch.) Course - Vital Signs Last Recorded V/S: Last Vital Signs Temp 98 F 12/07/19 20:04 Pulse 95 12/07/19 20:04 Resp 16 12/07/19 20:04 BP 125/57 L 12/07/19 20:04 Pulse Ox 96 12/07/19 20:04 - Orders/Labs/Meds Orders: Active Orders 24 hr Category Date Time Status Peripheral IV Care [RC] . DIRECTED Care 12/07/19 21:18 Ordered Sodium Chloride 0.9% [Normal Saline] 1,000 ml Med 12/07/19 21:18 Ordered IV ONETIME Sodium Chloride 0.9% [Saline Flush] Med 12/07/19 21:18 Ordered 10 ml FLUSH ASDIRECTED PRN Peripheral IV Insertion Adult [OM.PC] Stat Oth 12/07/19 21:18 Ordered Medication Orders Sodium Chloride (Normal Saline) 1,000 mls @ 500 mls/hr IV ONETIME ONE Stop: 12/07/19 23:17 Last Admin: 12/07/19 21:42 Dose: 500 mls/hr Documented by: HERMMIC Sodium Chloride (Saline Flush) 10 ml FLUSH ASDIRECTED PRN PRN Reason: Keep Vein Open Last Admin: 12/07/19 22:08 Dose: 10 ml Documented by: Meds: Medications Generic Name Dose Route Start Last Admin Trade Name Freq PRN Reason Stop Dose Admin Sodium Chloride 1,000 mls @ 500 mls/hr 12/07/19 21:18 12/07/19 21:42 Normal Saline IV 12/07/19 23:17 500 mls/hr ONETIME ONE Administration Sodium Chloride 10 ml 12/07/19 21:18 12/07/19 22:08 Saline Flush FLUSH 10 ml ASDIRECTED PRN Administration Keep Vein Open Discontinued Medications Generic Name Dose Route Start Last Admin Trade Name Evy PRN Reason Stop Dose Admin Diphenhydramine HCl 25 mg 12/07/19 21:18 12/07/19 21:43 Benadryl IVPUSH 12/07/19 21:19 25 mg ONETIME ONE Administration Famotidine 20 mg 12/07/19 21:18 12/07/19 21:44 Pepcid IVPUSH 12/07/19 21:19 20 mg ONETIME ONE Administration Methylprednisolone Sodium Succinate 125 mg 12/07/19 21:18 12/07/19 21:44 Solu-Medrol IVPUSH 12/07/19 21:19 125 mg ONETIME ONE Administration - Re-Assessments/Exams Free Text/Narrative Re-Assessment/Exam: 12/07/19 21:51 Patient does appear to be having more of a systemic inflammatory reaction, on her skin. She will have an IV placed, 125 mg Solu-Medrol, some famotidine, and 25 mg IV Benadryl for further management. Will likely send her home with a course of prednisone for ongoing allergic-like reaction. 12/07/19 22:52 Was reassessed at bedside, and her redness has decreased substantially. Everything looks much better, patient is ready go home at this time. We will discharge her home with general recommendations. Departure - Departure Time of Disposition: 22:53 Disposition: Home, Self-Care 01 Condition: Good Clinical Impression: Allergic reaction Qualifiers: Encounter type: initial encounter Qualified Code(s): T78.40XA - Allergy, unspecified, initial encounter Bee sting reaction Qualifiers: Encounter type: initial encounter Injury intent: accidental or unintentional Qualified Code(s): T63.441A - Toxic effect of venom of bees, accidental (unintentional), initial encounter - Discharge Information *PRESCRIPTION DRUG MONITORING PROGRAM REVIEWED*: No *COPY OF PRESCRIPTION DRUG MONITORING REPORT IN PATIENT BERTHA: No Prescriptions: predniSONE 20 mg PO ASDIRECTED #15 tab Instructions: Bee, Wasp, or Hornet Sting, Adult Referrals: Joann Corona MD [Primary Care Provider] - Forms: ED Department Discharge Additional Instructions: You were seen in the ER today regarding your bee or wasp sting. You did seem to have a pretty severe inflammatory reaction. You were given IV fluids, and some other IV medications to help relieve some of the symptoms, this did seem to help quite a bit. You were given a prescription for prednisone, please take as directed for further allergic-like symptoms. You may also try 1 tablet of Benadryl, every 4- 6 hours as needed for further relief of symptoms. The medication was electronically prescribed to the [facility] pharmacy located on [address], you will need to go there tomorrow during business hours to obtain and take as prescribed. Please return to the ER at any time if symptoms change or worsen. Sepsis Event Note (ED) - Evaluation Sepsis Screening Result: No Definite Risk - Focused Exam Vital Signs: Vital Signs Temp Pulse Resp BP Pulse Ox 12/07/19 20:04 98 F 95 16 125/57 L 96 - My Orders Last 24 Hours: My Active Orders 12/07/19 21:18 Peripheral IV Care [RC] . DIRECTED Sodium Chloride 0.9% [Normal Saline] 1,000 ml IV ONETIME Sodium Chloride 0.9% [Saline Flush] 10 ml FLUSH ASDIRECTED PRN Peripheral IV Insertion Adult [OM.PC] Stat - Assessment/Plan Last 24 Hours: My Active Orders 12/07/19 21:18 Peripheral IV Care [RC] . DIRECTED Sodium Chloride 0.9% [Normal Saline] 1,000 ml IV ONETIME Sodium Chloride 0.9% [Saline Flush] 10 ml FLUSH ASDIRECTED PRN Peripheral IV Insertion Adult [OM.PC] Stat
== END 2019-12-07 23:09 | disposition home or self-care (01) ==
LOC: JD.ED 19:42
DX: T63.441A Toxic effect of venom of bees, accidental (unintentional), initial encounter (principal); I10 Essential (primary) hypertension; Z88.1 Allergy status to other antibiotic agents; Z88.2 Allergy status to sulfonamides; Z88.8 Allergy status to other drugs, medicaments and biological substances; Z79.899 Other long term (current) drug therapy
CPT/HCPCS: 96361; 96374; 96375; 99283; J1200; J2930; J3490; J7030

== ENCOUNTER 2024-01-12 20:16 | Emergency (ER) | payer MEDICARE, OTHER ==
[2024-01-12] MEDS: diphenhydrAMINE 50 MG Cap PO ONE (21:08)
[2024-01-12] MEDS: predniSONE 20 MG Tab PO ONE (21:08)
[2024-01-12 23:19] VITALS: BP 105/63; PULSE 80
== END 2024-01-12 23:04 | disposition home or self-care (01) ==
LOC: JD.ED 20:16
DX: T63.461A Toxic effect of venom of wasps, accidental (unintentional), initial encounter (principal); I10 Essential (primary) hypertension; Z79.899 Other long term (current) drug therapy; Z79.82 Long term (current) use of aspirin; Z88.8 Allergy status to other drugs, medicaments and biological substances; Z88.0 Allergy status to penicillin; Z88.2 Allergy status to sulfonamides
CPT/HCPCS: 99282; J7512; Q0163